=== PATIENT | female | born 1970 | race Caucasian/White ===

== ENCOUNTER 2016-12-30 14:54 | Outpatient (CLI) | payer BC, OTHER ==
[2016-12-30 15:32] LABS: BASOPHILS % (AUTO) 0.5 % (0.0-2.0); EOSINOPHILS # (AUTO) 0.2 K/uL (0.0-0.7); EOSINOPHILS % (AUTO) 1.7 % (0.0-7.0); HEMATOCRIT 39.9 % (37-47); HEMOGLOBIN 13.1 G/DL (12.0-16.0); LYMPHOCYTES # (AUTO) 2.4 K/UL (0.8-4.8); LYMPHOCYTES % (AUTO) 25.3 % (20.5-51.5); MEAN CORPUSCULAR HEMOGLOBIN 31.6 UUG (27.0-31.0); MEAN CORPUSCULAR HGB CONC 33 g/dL (32.0-37.0); MEAN CORPUSCULAR VOLUME 95.9 FL (81.0-99.0); MONOCYTES # (AUTO) 0.5 K/UL (0.1-1.30); MONOCYTES % (AUTO) 5.5 % (0.0-11.0); NEUTROPHILS # (AUTO) 6.5 K/UL (1.8-8.9); PLATELET COUNT (AUTO) 331 K/UL (150-450); RED BLOOD CELL COUNT(AUTO) 4.16 MIL/UL (4.2-5.4); WHITE BLOOD COUNT (AUTO) 9.6 K/UL (4.0-11.2)
[2016-12-31 08:11] LABS: ESTRADIOL 162.2 pg/mL (.); FOLLICLE STIMULATION HORMONE 2.4 mIU/mL (.)
== END 2016-12-30 23:59 | disposition home or self-care (01) ==
LOC: LAB 14:54
PROVIDERS: ATTEND Obstetrics & Gynecology
DX: Z00.01 Encounter for general adult medical examination with abnormal findings (principal)
CPT/HCPCS: 36415; 82670; 83001; 85025

== ENCOUNTER → 2017-11-12 | Outpatient (CLI) | payer BC, OTHER ==
[2017-11-12 11:05] LABS: HEMOGLOBIN 13.3 g/dL (10.9-14.3); WHITE BLOOD COUNT (AUTO) 5.9 K/uL (3.8-11.8)
[2017-11-12 11:10] LABS: BASOPHILS # (AUTO) 0.1 K/uL (0.0-8.0); BASOPHILS % (AUTO) 0.8 % (0.0-2.0); EOSINOPHILS # (AUTO) 0.2 K/uL (0.0-0.7); EOSINOPHILS % (AUTO) 3.6 % (0.0-7.0); HEMATOCRIT 38.7 % (31.2-41.9); LYMPHOCYTES # (AUTO) 2.2 K/uL (20.0-40.0); LYMPHOCYTES % (AUTO) 37.3 % (20.5-51.5); MEAN CORPUSCULAR HEMOGLOBIN 33.7 uug (24.7-32.8); MEAN CORPUSCULAR HGB CONC 34 g/dL (32.3-35.6); MEAN CORPUSCULAR VOLUME 97.9 fL (75.5-95.3); MONOCYTES # (AUTO) 0.4 K/uL (2.0-10.0); MONOCYTES % (AUTO) 6.5 % (0.0-11.0); NEUTROPHILS # (AUTO) 3.1 K/uL (1.8-8.9); NEUTROPHILS % (AUTO) 51.8 % (38.5-71.5); PLATELET COUNT (AUTO) 264 K/uL (179-408); RED BLOOD CELL COUNT(AUTO) 3.95 MIL/uL (3.63-4.92)
[2017-11-12 11:33] LABS: BILIRUBIN,TOTAL 0.4 mg/dL (0.2-1.0); CREATININE 0.9 mg/dL (0.6-1.3); POTASSIUM 4.8 mmol/L (3.5-5.1); TOTAL PROTEIN, SERUM 7.2 g/dL (6.4-8.2)
[2017-11-12 11:40] LABS: THYROID STIMULATING HORMONE 1.977 mIU/mL (0.358-3.740)
[2017-11-13 08:06] LABS: FOLLICLE STIMULATION HORMONE 6.1 mIU/mL (.)
== END | disposition home or self-care (01) ==
LOC: LAB 09:56
DX: Z12.11 Encounter for screening for malignant neoplasm of colon (principal); Z12.12 Encounter for screening for malignant neoplasm of rectum; E78.5 Hyperlipidemia, unspecified; R23.2 Flushing; M25.519 Pain in unspecified shoulder
CPT/HCPCS: 36415; 83001; 83002; 84443; 85025

== ENCOUNTER 2019-02-13 14:48 | Outpatient (CLI) | payer BC, OTHER ==
[2019-02-13 15:23] LABS: BASOPHILS # (AUTO) 0.1 K/uL (0.0-8.0); BASOPHILS % (AUTO) 0.6 % (0.0-2.0); EOSINOPHILS # (AUTO) 0.2 K/uL (0.0-0.7); EOSINOPHILS % (AUTO) 2.1 % (0.0-7.0); HEMATOCRIT 40.5 % (31.2-41.9); HEMOGLOBIN 13.6 g/dL (10.9-14.3); LYMPHOCYTES # (AUTO) 2.6 K/uL (20.0-40.0); LYMPHOCYTES % (AUTO) 26.7 % (20.5-51.5); MEAN CORPUSCULAR HEMOGLOBIN 33.1 uug (24.7-32.8); MEAN CORPUSCULAR HGB CONC 34 g/dL (32.3-35.6); MEAN CORPUSCULAR VOLUME 98.5 fL (75.5-95.3); MONOCYTES # (AUTO) 0.5 K/uL (2.0-10.0); NEUTROPHILS # (AUTO) 6.3 K/uL (1.8-8.9); NEUTROPHILS % (AUTO) 65.6 % (38.5-71.5); PLATELET COUNT (AUTO) 284 K/uL (179-408); RED BLOOD CELL COUNT(AUTO) 4.11 MIL/uL (3.63-4.92); WHITE BLOOD COUNT (AUTO) 9.7 K/uL (3.8-11.8)
[2019-02-13 15:27] LABS: *BILIRUBIN,URIN NEGATIVE (NEGATIVE); *BLOOD, URINE NEGATIVE (NEGATIVE); *CLARITY,URINE CLEAR (CLEAR); *COLOR,URINE YELLOW (YELLOW); *KETONES,URINE TRACE (NEGATIVE); *UROBILINOGEN,URINE 0.2 E.U./dl (NORMAL); LEUKOCYTE ESTERASE ,URINE NEGATIVE (NEGATIVE); NITRITE, URINE NEGATIVE (NEGATIVE); UGLUCOSE NEGATIVE (NEGATIVE)
[2019-02-13 15:47] LABS: THYROID STIMULATING HORMONE 3.013 mIU/mL (0.358-3.740)
[2019-02-13 15:50] LABS: BILIRUBIN,TOTAL 0.4 mg/dL (0.2-1.0); CREATININE 0.9 mg/dL (0.6-1.3); MAGNESIUM 2.1 mg/dL (1.8-2.4); POTASSIUM 4.3 mmol/L (3.5-5.1); TOTAL PROTEIN, SERUM 7.6 g/dL (6.4-8.2)
== END 2019-02-13 23:59 | disposition home or self-care (01) ==
LOC: LAB 14:48
DX: L30.9 Dermatitis, unspecified (principal); E78.5 Hyperlipidemia, unspecified
CPT/HCPCS: 36415; 82306; 83550; 83735; 84443; 85025

== ENCOUNTER 2019-06-28 07:32 | Emergency (ER) | payer BC, OTHER ==
[~2019-06-28] VITALS: Ht 172.7 cm; Wt 86.2 kg
--- NOTE | 2019-06-28 07:48 | NUR ---
Patient discharged to home in stable condition. Written and verbal after care instructions given to patient and spouse. Patient & spouse verbalized understanding & compliance of instructions.
== END 2019-06-28 07:50 | disposition home or self-care (01) ==
LOC: ER 07:32
DX: J10.1 Influenza due to other identified influenza virus with other respiratory manifestations (principal)
CPT/HCPCS: A4663

== ENCOUNTER → 2019-07-16 | Outpatient (CLI) | payer BC, OTHER ==
[2019-07-18 01:06] LABS: CANCER AG, 125 14.6 U/mL (0.0-38.1); FOLLICLE STIMULATION HORMONE 6.1 mIU/mL (.)
== END | disposition home or self-care (01) ==
LOC: LAB 12:46
PROVIDERS: ATTEND Obstetrics & Gynecology
DX: Z80.9 Family history of malignant neoplasm, unspecified (principal)
CPT/HCPCS: 36415; 83001

== ENCOUNTER 2019-08-17 19:58 | Emergency (ER) | payer BC, OTHER ==
[~2019-08-17] VITALS: Ht 167.6 cm; Wt 86.2 kg
[2019-08-17 20:32] LABS: BASOPHILS # (AUTO) 0.1 K/uL (0.0-8.0); BASOPHILS % (AUTO) 0.7 % (0.0-2.0); EOSINOPHILS # (AUTO) 0.2 K/uL (0.0-0.7); HEMATOCRIT 36.1 % (31.2-41.9); HEMOGLOBIN 12.3 g/dL (10.9-14.3); LYMPHOCYTES # (AUTO) 2.8 K/uL (20.0-40.0); LYMPHOCYTES % (AUTO) 38.4 % (20.5-51.5); MEAN CORPUSCULAR HGB CONC 34 g/dL (32.3-35.6); MEAN CORPUSCULAR VOLUME 96.5 fL (75.5-95.3); MONOCYTES # (AUTO) 0.6 K/uL (2.0-10.0); MONOCYTES % (AUTO) 7.7 % (0.0-11.0); NEUTROPHILS # (AUTO) 3.6 K/uL (1.8-8.9); NEUTROPHILS % (AUTO) 50.2 % (38.5-71.5); PLATELET COUNT (AUTO) 266 K/uL (179-408); RED BLOOD CELL COUNT(AUTO) 3.74 MIL/uL (3.63-4.92); WHITE BLOOD COUNT (AUTO) 7.2 K/uL (3.8-11.8)
[2019-08-17 20:43] LABS: CARBON DIOXIDE 28 mmol/L (21-32); CHLORIDE 103 mmol/L (98-107); CREATININE 0.9 mg/dL (0.6-1.3); GLUCOSE 101 mg/dL (74-106); POTASSIUM 4.6 mmol/L (3.5-5.1); UREA NITROGEN, BLOOD 21 mg/dL (7-18)
--- NOTE | 2019-08-17 20:47 | NUR ---
PT IS IN ROOM #5. DR DAN EVALUATED THE PT.
[2019-08-17 20:56] LABS: ALANINE AMINOTRANSFERASE 50 U/L (14-59); ALKALINE PHOSPHATASE 96 U/L (50-136); ASPARTATE AMINOTRANSFERASE 24 U/L (15-37); BILIRUBIN,DIRECT < 0.1 mg/dL (0.0-0.2); BILIRUBIN,TOTAL 0.1 mg/dL (0.2-1.0); TOTAL PROTEIN, SERUM 7.1 g/dL (6.4-8.2)
--- NOTE | 2019-08-17 21:03 | NUR ---
PT WAS D/C'd TO HOME AFTER DR DAN EVALUATION. D/C INSTRUCTIONS GIVEN TO THE PT.
[2019-08-17 21:04] VITALS: BP 142/88
== END 2019-08-17 21:15 | disposition home or self-care (01) ==
LOC: ER 19:58
DX: R07.89 Other chest pain (principal); E78.5 Hyperlipidemia, unspecified
CPT/HCPCS: 36415; 70030-TC; 71045; 85025; 85730; 93005; A4663

== ENCOUNTER → 2019-11-24 | Outpatient (CLI) | payer BC, OTHER ==
[2019-11-24 09:27] LABS: BASOPHILS # (AUTO) 0.1 K/uL (0.0-8.0); BASOPHILS % (AUTO) 1.4 % (0.0-2.0); EOSINOPHILS # (AUTO) 0.2 K/uL (0.0-0.7); EOSINOPHILS % (AUTO) 3.9 % (0.0-7.0); HEMATOCRIT 38.8 % (31.2-41.9); LYMPHOCYTES # (AUTO) 1.9 K/uL (20.0-40.0); MEAN CORPUSCULAR HEMOGLOBIN 32.4 uug (24.7-32.8); MEAN CORPUSCULAR HGB CONC 34 g/dL (32.3-35.6); MEAN CORPUSCULAR VOLUME 96.6 fL (75.5-95.3); MONOCYTES # (AUTO) 0.4 K/uL (2.0-10.0); MONOCYTES % (AUTO) 6.7 % (0.0-11.0); NEUTROPHILS # (AUTO) 2.8 K/uL (1.8-8.9); PLATELET COUNT (AUTO) 345 K/uL (179-408); RED BLOOD CELL COUNT(AUTO) 4.02 MIL/uL (3.63-4.92); WHITE BLOOD COUNT (AUTO) 5.3 K/uL (3.8-11.8)
[2019-11-24 10:10] LABS: *BILIRUBIN,URIN NEGATIVE (NEGATIVE); *BLOOD, URINE 3+ (NEGATIVE); *CLARITY,URINE Other (CLEAR); *COLOR,URINE YELLOW (YELLOW); *KETONES,URINE NEGATIVE (NEGATIVE); *UROBILINOGEN,URINE 0.2 E.U./dl (NORMAL); LEUKOCYTE ESTERASE ,URINE NEGATIVE (NEGATIVE); NITRITE, URINE NEGATIVE (NEGATIVE); UGLUCOSE NEGATIVE (NEGATIVE)
[2019-11-24 10:19] LABS: BILIRUBIN,TOTAL 0.3 mg/dL (0.2-1.0); CREATININE 1.1 mg/dL (0.6-1.3); MAGNESIUM 2.1 mg/dL (1.8-2.4); POTASSIUM 4.5 mmol/L (3.5-5.1); TOTAL PROTEIN, SERUM 7.5 g/dL (6.4-8.2)
[2019-11-24 10:25] LABS: THYROID STIMULATING HORMONE 2.091 mIU/mL (0.358-3.740)
[2019-11-24 12:53] LABS: BACTERIA,URINE FEW /HPF (NONE SEEN); RBC,URINE 50-80 /HPF (0-3); SQUAMOUS EPITHELIAL CELL,UR MODERATE /HPF (NONE SEEN)
[2019-11-26 05:06] LABS: PROGESTERONE 0.3 ng/mL (.)
[2019-11-26 12:08] LABS: INSULIN 19.8 uIU/mL (2.6-24.9)
== END | disposition home or self-care (01) ==
LOC: LAB 08:23
DX: R51 Headache (principal)
CPT/HCPCS: 36415; 82306; 83525; 83735; 84443; 84480; 85025; 85651; 86140; 87086

== ENCOUNTER 2019-12-28 10:40 | Emergency (ER) | payer BC, OTHER ==
[~2019-12-28] VITALS: Ht 167.6 cm; Wt 87.1 kg
[2019-12-28] MEDS ORDERED: CEFTRIAXONE /D5W 50ML IVPB **ER PYXIS IV ONE (10:50)
[2019-12-28] MEDS ORDERED: VANCOMYCIN IV 200 ML ONE (10:50)
[2019-12-28] MEDS ORDERED: VANCOMYCIN IV 1,000 MG in IV DEXTROSE 5% 250 ML IV ONE (11:00)
[2019-12-28] MEDS ORDERED: CEFTRIAXONE 1 G in IV DEXTROSE 5% 50 ML IV ONE (11:00)
--- NOTE | 2019-12-28 11:12 | NUR ---
PT IS IN ROOM #5. DR LOCKHART EVALUATED THE PT.
[2019-12-28 12:50] VITALS: BP 136/72
--- NOTE | 2019-12-28 12:50 | NUR ---
PT WAS D/C'd TO HOME. D/C INSTRUCTIONS GIVEN TO THE PT.
== END 2019-12-28 12:51 | disposition home or self-care (01) ==
LOC: ER 10:40
DX: N61.0 Mastitis without abscess (principal); E78.5 Hyperlipidemia, unspecified
CPT/HCPCS: 96365 ×2; 99284; J0696; J3370; A4663

== ENCOUNTER 2020-01-10 10:46 | Emergency (ER) | payer BC, OTHER ==
[~2020-01-10] VITALS: Ht 170.2 cm; Wt 88.5 kg
--- NOTE | 2020-01-10 11:01 | NUR ---
PT IS IN ROOM #5A. DR DAN EVALUATED THE PT.
--- NOTE | 2020-01-10 11:01 | NUR ---
Female machine loader accompanied female patient for (DR Hagan).
[2020-01-10 11:30] LABS: BASOPHILS % (AUTO) 0.9 % (0.0-2.0); EOSINOPHILS # (AUTO) 0.2 K/uL (0.0-0.7); EOSINOPHILS % (AUTO) 3.2 % (0.0-7.0); HEMATOCRIT 36.8 % (31.2-41.9); HEMOGLOBIN 12.3 g/dL (10.9-14.3); LYMPHOCYTES # (AUTO) 1.5 K/uL (20.0-40.0); LYMPHOCYTES % (AUTO) 31.8 % (20.5-51.5); MEAN CORPUSCULAR HEMOGLOBIN 32.3 uug (24.7-32.8); MEAN CORPUSCULAR HGB CONC 34 g/dL (32.3-35.6); MEAN CORPUSCULAR VOLUME 96.4 fL (75.5-95.3); MONOCYTES # (AUTO) 0.3 K/uL (2.0-10.0); MONOCYTES % (AUTO) 5.9 % (0.0-11.0); NEUTROPHILS # (AUTO) 2.8 K/uL (1.8-8.9); NEUTROPHILS % (AUTO) 58.2 % (38.5-71.5); PLATELET COUNT (AUTO) 302 K/uL (179-408); RED BLOOD CELL COUNT(AUTO) 3.82 MIL/uL (3.63-4.92); WHITE BLOOD COUNT (AUTO) 4.8 K/uL (3.8-11.8)
[2020-01-10 11:34] LABS: POTASSIUM 4.3 mmol/L (3.5-5.1)
--- NOTE | 2020-01-10 11:52 | NUR ---
Radialogist from [facility] spoke to DR Hagan, stating unable to perform MRI of chest.
--- NOTE | 2020-01-10 12:18 | NUR ---
PT WAS D/C'd TO HOME. D/C INSTRUCTIONS GIVEN TO THE PT.
[2020-01-10 12:19] VITALS: BP 139/71
== END 2020-01-10 12:20 | disposition home or self-care (01) ==
LOC: ER 10:46
DX: N61.0 Mastitis without abscess (principal); E78.5 Hyperlipidemia, unspecified
CPT/HCPCS: 36415; 76642; 82378; 85025; A4663

== ENCOUNTER 2020-01-19 09:15 | Inpatient (IN) | payer BC, OTHER ==
[~2020-01-19] VITALS: Ht 170.2 cm; Wt 89.4 kg
[2020-01-19] MEDS ORDERED: CLIN300C11 PO (09:29)
[2020-01-19] MEDS ORDERED: AMOX-430 PO (09:29)
[2020-01-19] MEDS ORDERED: METR500T PO (09:29)
[2020-01-19] MEDS ORDERED: VANCOMYCIN IV 1,000 MG in IV DEXTROSE 5% 250 ML IV ONE (09:45)
[2020-01-19 10:07] LABS: BASOPHILS # (AUTO) 0.1 K/uL (0.0-8.0); EOSINOPHILS # (AUTO) 0.1 K/uL (0.0-0.7); EOSINOPHILS % (AUTO) 2.6 % (0.0-7.0); HEMATOCRIT 37.7 % (31.2-41.9); HEMOGLOBIN 12.8 g/dL (10.9-14.3); LYMPHOCYTES # (AUTO) 1.3 K/uL (20.0-40.0); LYMPHOCYTES % (AUTO) 23.8 % (20.5-51.5); MEAN CORPUSCULAR HEMOGLOBIN 32.5 uug (24.7-32.8); MEAN CORPUSCULAR HGB CONC 34 g/dL (32.3-35.6); MEAN CORPUSCULAR VOLUME 95.7 fL (75.5-95.3); MONOCYTES # (AUTO) 0.4 K/uL (2.0-10.0); MONOCYTES % (AUTO) 8.2 % (0.0-11.0); NEUTROPHILS # (AUTO) 3.5 K/uL (1.8-8.9); NEUTROPHILS % (AUTO) 64.4 % (38.5-71.5); PLATELET COUNT (AUTO) 288 K/uL (179-408); RED BLOOD CELL COUNT(AUTO) 3.94 MIL/uL (3.63-4.92); WHITE BLOOD COUNT (AUTO) 5.4 K/uL (3.8-11.8)
[2020-01-19] MEDS ORDERED: VANCOMYCIN IV 200 ML ONE (10:14)
[2020-01-19 10:24] LABS: BILIRUBIN,DIRECT 0.1 mg/dL (0.0-0.2); BILIRUBIN,TOTAL 0.4 mg/dL (0.2-1.0); POTASSIUM 4.7 mmol/L (3.5-5.1); TOTAL PROTEIN, SERUM 6.9 g/dL (6.4-8.2)
[2020-01-19 12:59] VITALS: BP 141/76
[2020-01-19] MEDS ORDERED: MORPHINE SULFATE 2 MG/1 ML DISP.SYRIN IV PRN (13:30)
[2020-01-19] MEDS ORDERED: HYDROCODONE/APAP 5-325MG TABLET PO PRN (13:30)
[2020-01-19] MEDS ORDERED: MAGNESIUM HYDROXIDE 30 ML LIQUID UDC PO PRN (13:30)
[2020-01-19] MEDS ORDERED: ONDANSETRON 4 MG/2 ML VIAL IV PRN (13:30)
[2020-01-19] MEDS ORDERED: Z GUARD REMEDY PASTE 57 GM TUBE TOP PRN (13:30)
[2020-01-19] MEDS: IV NS 1000 ML 1,000 ML IV PRN (14:04)
[2020-01-19 15:54] VITALS: BP 134/84
[2020-01-19 20:36] VITALS: BP 113/57
[2020-01-19] MEDS: DOCUSATE SODIUM 100 MG CAPSULE PO SCH (20:42)
[2020-01-19] MEDS: CEFEPIME HCL 1 G in IV DEXTROSE 5% 50 ML IV SCH (21:02)
[2020-01-19] MEDS: ACETAMINOPHEN 325 MG TABLET PO PRN (21:10)
[2020-01-19] MEDS: VANCOMYCIN IV 1,000 MG in IV DEXTROSE 5% 250 ML IV SCH (21:38)
[2020-01-20] MEDS: IV NS 1000 ML 1,000 ML IV PRN (02:52)
[2020-01-20] MEDS: CEFEPIME HCL 1 G in IV DEXTROSE 5% 50 ML IV SCH ×3 (05:03→22:00)
[2020-01-20] MEDS: ACETAMINOPHEN 325 MG TABLET PO PRN (05:13)
[2020-01-20 05:36] VITALS: BP 119/75
[2020-01-20 07:42] LABS: BASOPHILS # (AUTO) 0.1 K/uL (0.0-8.0); EOSINOPHILS # (AUTO) 0.2 K/uL (0.0-0.7); EOSINOPHILS % (AUTO) 3.3 % (0.0-7.0); HEMATOCRIT 38.2 % (31.2-41.9); HEMOGLOBIN 13.2 g/dL (10.9-14.3); LYMPHOCYTES # (AUTO) 1.5 K/uL (20.0-40.0); LYMPHOCYTES % (AUTO) 24.9 % (20.5-51.5); MEAN CORPUSCULAR HEMOGLOBIN 33.1 uug (24.7-32.8); MEAN CORPUSCULAR HGB CONC 35 g/dL (32.3-35.6); MEAN CORPUSCULAR VOLUME 95.9 fL (75.5-95.3); MONOCYTES # (AUTO) 0.4 K/uL (2.0-10.0); NEUTROPHILS # (AUTO) 3.9 K/uL (1.8-8.9); NEUTROPHILS % (AUTO) 63.8 % (38.5-71.5); PLATELET COUNT (AUTO) 300 K/uL (179-408); RED BLOOD CELL COUNT(AUTO) 3.98 MIL/uL (3.63-4.92); WHITE BLOOD COUNT (AUTO) 6.1 K/uL (3.8-11.8)
[2020-01-20 07:53] LABS: BILIRUBIN,TOTAL 0.4 mg/dL (0.2-1.0); MAGNESIUM 2.1 mg/dL (1.8-2.4); POTASSIUM 4.3 mmol/L (3.5-5.1); TOTAL PROTEIN, SERUM 6.9 g/dL (6.4-8.2)
[2020-01-20] MEDS: NICOTINE 7 MG/24HR PATCH TD SCH (08:00)
[2020-01-20 08:48] LABS: THYROID STIMULATING HORMONE 2.338 mIU/mL (0.358-3.740)
[2020-01-20] MEDS: VANCOMYCIN IV 1,000 MG in IV DEXTROSE 5% 250 ML IV SCH ×2 (09:30→22:36)
[2020-01-20 12:00] VITALS: BP 140/74
[2020-01-20 15:55] VITALS: BP 134/64
[2020-01-20 20:30] VITALS: BP 122/71
[2020-01-20] MEDS: DOCUSATE SODIUM 100 MG CAPSULE PO SCH (20:56)
[2020-01-20] MEDS: ATORVASTATIN 10 MG TABLET PO SCH (20:56)
[2020-01-21] MEDS: CEFEPIME HCL 1 G in IV DEXTROSE 5% 50 ML IV SCH ×3 (05:41→21:01)
[2020-01-21 06:31] VITALS: BP 121/72
[2020-01-21] MEDS: NICOTINE 7 MG/24HR PATCH TD SCH (08:58)
[2020-01-21 09:46] LABS: BASOPHILS # (AUTO) 0.1 K/uL (0.0-8.0); BASOPHILS % (AUTO) 0.9 % (0.0-2.0); EOSINOPHILS # (AUTO) 0.2 K/uL (0.0-0.7); EOSINOPHILS % (AUTO) 3.3 % (0.0-7.0); HEMATOCRIT 43.4 % (31.2-41.9); HEMOGLOBIN 14.6 g/dL (10.9-14.3); LYMPHOCYTES # (AUTO) 1.7 K/uL (20.0-40.0); LYMPHOCYTES % (AUTO) 24.6 % (20.5-51.5); MEAN CORPUSCULAR HEMOGLOBIN 32.6 uug (24.7-32.8); MEAN CORPUSCULAR HGB CONC 34 g/dL (32.3-35.6); MEAN CORPUSCULAR VOLUME 96.9 fL (75.5-95.3); MONOCYTES # (AUTO) 0.4 K/uL (2.0-10.0); MONOCYTES % (AUTO) 5.3 % (0.0-11.0); NEUTROPHILS # (AUTO) 4.4 K/uL (1.8-8.9); NEUTROPHILS % (AUTO) 65.9 % (38.5-71.5); PLATELET COUNT (AUTO) 320 K/uL (179-408); RED BLOOD CELL COUNT(AUTO) 4.48 MIL/uL (3.63-4.92); WHITE BLOOD COUNT (AUTO) 6.7 K/uL (3.8-11.8)
[2020-01-21 09:58] LABS: CREATININE 1.1 mg/dL (0.6-1.3); MAGNESIUM 2.2 mg/dL (1.8-2.4); PHOSPHOROUS 2.5 mg/dL (2.5-4.9)
[2020-01-21 11:00] VITALS: BP 117/68
[2020-01-21] MEDS: VANCOMYCIN IV 1,250 MG in IV DEXTROSE 5% 250 ML IV SCH ×2 (11:24→22:32)
[2020-01-21 15:36] VITALS: BP 145/76
[2020-01-21 20:06] VITALS: BP 140/74
[2020-01-21] MEDS: DOCUSATE SODIUM 100 MG CAPSULE PO SCH ×2 (21:00→21:01)
[2020-01-21] MEDS: ATORVASTATIN 10 MG TABLET PO SCH ×2 (21:00→21:01)
[2020-01-22] MEDS: CEFEPIME HCL 1 G in IV DEXTROSE 5% 50 ML IV SCH ×3 (05:28→21:17)
[2020-01-22 05:49] VITALS: BP 114/65
[2020-01-22 06:22] LABS: BASOPHILS # (AUTO) 0.1 K/uL (0.0-8.0); BASOPHILS % (AUTO) 1.2 % (0.0-2.0); EOSINOPHILS # (AUTO) 0.3 K/uL (0.0-0.7); EOSINOPHILS % (AUTO) 4.4 % (0.0-7.0); HEMATOCRIT 37.4 % (31.2-41.9); HEMOGLOBIN 12.7 g/dL (10.9-14.3); LYMPHOCYTES # (AUTO) 2.2 K/uL (20.0-40.0); LYMPHOCYTES % (AUTO) 28.9 % (20.5-51.5); MEAN CORPUSCULAR HEMOGLOBIN 32.7 uug (24.7-32.8); MEAN CORPUSCULAR HGB CONC 34 g/dL (32.3-35.6); MEAN CORPUSCULAR VOLUME 96.2 fL (75.5-95.3); MONOCYTES # (AUTO) 0.5 K/uL (2.0-10.0); MONOCYTES % (AUTO) 7.1 % (0.0-11.0); NEUTROPHILS # (AUTO) 4.4 K/uL (1.8-8.9); NEUTROPHILS % (AUTO) 58.4 % (38.5-71.5); PLATELET COUNT (AUTO) 306 K/uL (179-408); RED BLOOD CELL COUNT(AUTO) 3.89 MIL/uL (3.63-4.92); WHITE BLOOD COUNT (AUTO) 7.5 K/uL (3.8-11.8)
[2020-01-22 06:40] LABS: POTASSIUM 3.7 mmol/L (3.5-5.1)
[2020-01-22] MEDS: NICOTINE 7 MG/24HR PATCH TD SCH (08:54)
[2020-01-22 12:00] VITALS: BP 138/77
[2020-01-22] MEDS: VANCOMYCIN IV 1,250 MG in IV DEXTROSE 5% 250 ML IV SCH (15:00)
[2020-01-22 16:00] VITALS: BP 118/62
[2020-01-22 20:00] VITALS: BP 136/83
[2020-01-22] MEDS: ATORVASTATIN 10 MG TABLET PO SCH (21:00)
[2020-01-22] MEDS: DOCUSATE SODIUM 100 MG CAPSULE PO SCH (21:00)
[2020-01-23] MEDS: ZOLPIDEM 5 MG TABLET PO PRN ×2 (00:41→22:20)
[2020-01-23] MEDS: VANCOMYCIN IV 1,250 MG in IV DEXTROSE 5% 250 ML IV SCH ×2 (01:20→14:33)
[2020-01-23] MEDS: CEFEPIME HCL 1 G in IV DEXTROSE 5% 50 ML IV SCH ×3 (05:10→21:32)
[2020-01-23] MEDS: NICOTINE 7 MG/24HR PATCH TD SCH (08:34)
[2020-01-23 12:00] VITALS: BP 116/71
[2020-01-23 13:21] LABS: BASOPHILS % (AUTO) 0.7 % (0.0-2.0); EOSINOPHILS # (AUTO) 0.2 K/uL (0.0-0.7); EOSINOPHILS % (AUTO) 2.8 % (0.0-7.0); HEMATOCRIT 38.4 % (31.2-41.9); HEMOGLOBIN 13.3 g/dL (10.9-14.3); LYMPHOCYTES # (AUTO) 1.7 K/uL (20.0-40.0); LYMPHOCYTES % (AUTO) 25.1 % (20.5-51.5); MEAN CORPUSCULAR HEMOGLOBIN 33.1 uug (24.7-32.8); MEAN CORPUSCULAR HGB CONC 35 g/dL (32.3-35.6); MONOCYTES # (AUTO) 0.3 K/uL (2.0-10.0); MONOCYTES % (AUTO) 4.5 % (0.0-11.0); NEUTROPHILS # (AUTO) 4.5 K/uL (1.8-8.9); NEUTROPHILS % (AUTO) 66.9 % (38.5-71.5); PLATELET COUNT (AUTO) 299 K/uL (179-408); WHITE BLOOD COUNT (AUTO) 6.7 K/uL (3.8-11.8)
[2020-01-23 13:28] LABS: CREATININE 0.9 mg/dL (0.6-1.3); PHOSPHOROUS 3.1 mg/dL (2.5-4.9); POTASSIUM 3.9 mmol/L (3.5-5.1)
[2020-01-23 16:08] VITALS: BP 118/73
[2020-01-23] MEDS ORDERED: ATOR10TA PO (17:10)
[2020-01-23] MEDS ORDERED: DOXY100T2 PO (17:10)
[2020-01-23] MEDS ORDERED: DOCU100C36 PO (17:10)
[2020-01-23] MEDS ORDERED: LEVO750T21 PO (17:10)
[2020-01-23] MEDS: ATORVASTATIN 10 MG TABLET PO SCH (21:00)
[2020-01-23] MEDS: DOCUSATE SODIUM 100 MG CAPSULE PO SCH (21:00)
[2020-01-24] MEDS: VANCOMYCIN IV 1,250 MG in IV DEXTROSE 5% 250 ML IV SCH ×2 (01:13→14:47)
[2020-01-24] MEDS: CEFEPIME HCL 1 G in IV DEXTROSE 5% 50 ML IV SCH ×2 (05:22→14:26)
[2020-01-24 06:46] LABS: BASOPHILS # (AUTO) 0.1 K/uL (0.0-8.0); BASOPHILS % (AUTO) 1.2 % (0.0-2.0); EOSINOPHILS # (AUTO) 0.3 K/uL (0.0-0.7); EOSINOPHILS % (AUTO) 4.7 % (0.0-7.0); HEMATOCRIT 36.9 % (31.2-41.9); HEMOGLOBIN 12.6 g/dL (10.9-14.3); LYMPHOCYTES % (AUTO) 32.4 % (20.5-51.5); MEAN CORPUSCULAR HEMOGLOBIN 33.2 uug (24.7-32.8); MEAN CORPUSCULAR HGB CONC 34 g/dL (32.3-35.6); MEAN CORPUSCULAR VOLUME 96.8 fL (75.5-95.3); MONOCYTES # (AUTO) 0.4 K/uL (2.0-10.0); MONOCYTES % (AUTO) 7.2 % (0.0-11.0); NEUTROPHILS # (AUTO) 3.3 K/uL (1.8-8.9); NEUTROPHILS % (AUTO) 54.5 % (38.5-71.5); PLATELET COUNT (AUTO) 300 K/uL (179-408); RED BLOOD CELL COUNT(AUTO) 3.81 MIL/uL (3.63-4.92); WHITE BLOOD COUNT (AUTO) 6.1 K/uL (3.8-11.8)
[2020-01-24 07:06] LABS: AFP, TUMOR MARKER 2.4 ng/mL (0.0-8.3); CANCER AG, 125 23.5 U/mL (0.0-38.1); CANCER ANTIGEN 15-3 20.4 U/mL (0.0-25.0)
[2020-01-24 07:24] LABS: CREATININE 0.9 mg/dL (0.6-1.3); MAGNESIUM 2.4 mg/dL (1.8-2.4); PHOSPHOROUS 3.7 mg/dL (2.5-4.9); POTASSIUM 4.1 mmol/L (3.5-5.1)
[2020-01-24] MEDS: NICOTINE 7 MG/24HR PATCH TD SCH (09:00)
[2020-01-24 11:21] VITALS: BP 125/81
[2020-01-24 16:18] VITALS: BP 123/54
== END 2020-01-24 19:02 | disposition home or self-care (01) | DRG 601 ==
LOC: ER 09:15 → MEDSURG3 12:14
PROVIDERS: ADMIT Hospitalist; ATTEND Registered Nurse
PROC: 0HBT3ZX Excision of Right Breast, Percutaneous Approach, Diagnostic (ICD-10-PCS; principal; 2020-01-22)
PROC: 05H533Z Insertion of Infusion Device into Right Subclavian Vein, Percutaneous Approach (ICD-10-PCS; principal; 2020-01-22)
PROC: B546ZZA Ultrasonography of Right Subclavian Vein, Guidance (ICD-10-PCS; principal; 2020-01-22)
DX: N60.11 Diffuse cystic mastopathy of right breast (principal); N61.0 Mastitis without abscess; E66.9 Obesity, unspecified; Z68.30 Body mass index [BMI] 30.0-30.9, adult; E78.5 Hyperlipidemia, unspecified; K42.9 Umbilical hernia without obstruction or gangrene; N63.11 Unspecified lump in the right breast, upper outer quadrant; F17.210 Nicotine dependence, cigarettes, uncomplicated; N61.1 Abscess of the breast and nipple
CPT/HCPCS: 36415; 70030-TC; 71045; 76642; 76942; 82105; 83735; 84100; 84443; 85025; 85730; 86300; 86803; 87040; 87070; 87806; 88333-TC; 93005; A4663; A9150; G0378; J0692; J3370; J7030; J7060

== ENCOUNTER 2020-02-07 09:34 | Outpatient (CLI) | payer BC, OTHER ==
[~2020-02-07 09:34] MED LIST: ATOR10TA PO; DOCU100C36 PO; DOXY100T2 PO; LEVO750T21 PO
[2020-02-07 09:52] LABS: *BILIRUBIN,URIN NEGATIVE (NEGATIVE); *BLOOD, URINE NEGATIVE (NEGATIVE); *CLARITY,URINE CLEAR (CLEAR); *COLOR,URINE YELLOW (YELLOW); *KETONES,URINE NEGATIVE (NEGATIVE); *UROBILINOGEN,URINE 0.2 E.U./dl (NORMAL); LEUKOCYTE ESTERASE ,URINE TRACE (NEGATIVE); NITRITE, URINE NEGATIVE (NEGATIVE); UGLUCOSE NEGATIVE (NEGATIVE)
[2020-02-07 10:31] LABS: BASOPHILS # (AUTO) 0.1 K/uL (0.0-8.0); EOSINOPHILS # (AUTO) 0.2 K/uL (0.0-0.7); EOSINOPHILS % (AUTO) 2.7 % (0.0-7.0); HEMATOCRIT 38.8 % (31.2-41.9); HEMOGLOBIN 13.2 g/dL (10.9-14.3); LYMPHOCYTES # (AUTO) 1.7 K/uL (20.0-40.0); MEAN CORPUSCULAR HEMOGLOBIN 32.8 uug (24.7-32.8); MEAN CORPUSCULAR HGB CONC 34 g/dL (32.3-35.6); MEAN CORPUSCULAR VOLUME 96.5 fL (75.5-95.3); MONOCYTES # (AUTO) 0.4 K/uL (2.0-10.0); MONOCYTES % (AUTO) 6.6 % (0.0-11.0); NEUTROPHILS # (AUTO) 3.8 K/uL (1.8-8.9); NEUTROPHILS % (AUTO) 61.7 % (38.5-71.5); PLATELET COUNT (AUTO) 292 K/uL (179-408); RED BLOOD CELL COUNT(AUTO) 4.03 MIL/uL (3.63-4.92); WHITE BLOOD COUNT (AUTO) 6.1 K/uL (3.8-11.8)
[2020-02-07 10:53] LABS: BILIRUBIN,DIRECT 0.1 mg/dL (0.0-0.2); BILIRUBIN,TOTAL 0.3 mg/dL (0.2-1.0); CREATININE 0.9 mg/dL (0.6-1.3); POTASSIUM 4.6 mmol/L (3.5-5.1); TOTAL PROTEIN, SERUM 7.4 g/dL (6.4-8.2)
[2020-02-07 13:07] LABS: BACTERIA,URINE NONE SEEN /HPF (NONE SEEN); RBC,URINE 0-3 /HPF (0-3); SQUAMOUS EPITHELIAL CELL,UR FEW /HPF (NONE SEEN); WBC,URINE 0-3 /HPF (0-3)
== END 2020-02-07 23:59 | disposition home or self-care (01) ==
LOC: LAB 09:34
DX: N61.0 Mastitis without abscess (principal)
CPT/HCPCS: 36415; 85025

== ENCOUNTER 2020-02-22 11:28 | Outpatient (CLI) | payer BC, OTHER ==
[2020-02-22 11:55] LABS: BASOPHILS # (AUTO) 0.1 K/uL (0.0-8.0); BASOPHILS % (AUTO) 1.2 % (0.0-2.0); EOSINOPHILS # (AUTO) 0.1 K/uL (0.0-0.7); EOSINOPHILS % (AUTO) 3.1 % (0.0-7.0); HEMATOCRIT 38.9 % (31.2-41.9); HEMOGLOBIN 13.3 g/dL (10.9-14.3); LYMPHOCYTES # (AUTO) 1.7 K/uL (20.0-40.0); LYMPHOCYTES % (AUTO) 36.3 % (20.5-51.5); MEAN CORPUSCULAR HEMOGLOBIN 32.8 uug (24.7-32.8); MEAN CORPUSCULAR HGB CONC 34 g/dL (32.3-35.6); MEAN CORPUSCULAR VOLUME 95.5 fL (75.5-95.3); MONOCYTES # (AUTO) 0.3 K/uL (2.0-10.0); MONOCYTES % (AUTO) 6.5 % (0.0-11.0); NEUTROPHILS # (AUTO) 2.5 K/uL (1.8-8.9); NEUTROPHILS % (AUTO) 52.9 % (38.5-71.5); PLATELET COUNT (AUTO) 307 K/uL (179-408); RED BLOOD CELL COUNT(AUTO) 4.07 MIL/uL (3.63-4.92); WHITE BLOOD COUNT (AUTO) 4.6 K/uL (3.8-11.8)
[2020-02-22 12:06] LABS: BILIRUBIN,TOTAL 0.5 mg/dL (0.2-1.0); CREATININE 0.9 mg/dL (0.6-1.3); MAGNESIUM 2.2 mg/dL (1.8-2.4); POTASSIUM 4.3 mmol/L (3.5-5.1); TOTAL PROTEIN, SERUM 7.7 g/dL (6.4-8.2)
== END 2020-02-22 23:59 | disposition home or self-care (01) ==
LOC: LAB 11:28
DX: C50.919 Malignant neoplasm of unspecified site of unspecified female breast (principal)
CPT/HCPCS: 36415; 83735; 85025; 85610; 85730; 86300

== ENCOUNTER 2020-03-12 12:36 | Outpatient (CLI) | payer BC, OTHER ==
[2020-03-12 13:11] LABS: BASOPHILS % (AUTO) 1.5 % (0.0-2.0); EOSINOPHILS # (AUTO) 0.1 K/uL (0.0-0.7); EOSINOPHILS % (AUTO) 2.7 % (0.0-7.0); HEMATOCRIT 36.6 % (31.2-41.9); HEMOGLOBIN 12.2 g/dL (10.9-14.3); LYMPHOCYTES # (AUTO) 1.2 K/uL (20.0-40.0); LYMPHOCYTES % (AUTO) 63.1 % (20.5-51.5); MEAN CORPUSCULAR HGB CONC 33 g/dL (32.3-35.6); MEAN CORPUSCULAR VOLUME 95.8 fL (75.5-95.3); MONOCYTES # (AUTO) 0.1 K/uL (2.0-10.0); MONOCYTES % (AUTO) 6.7 % (0.0-11.0); NEUTROPHILS # (AUTO) 0.5 K/uL (1.8-8.9); PLATELET COUNT (AUTO) 169 K/uL (179-408); RED BLOOD CELL COUNT(AUTO) 3.82 MIL/uL (3.63-4.92)
[2020-03-12 13:23] LABS: BILIRUBIN,TOTAL 0.3 mg/dL (0.2-1.0); CREATININE 0.9 mg/dL (0.6-1.3); MAGNESIUM 2.2 mg/dL (1.8-2.4); POTASSIUM 4.3 mmol/L (3.5-5.1); TOTAL PROTEIN, SERUM 7.4 g/dL (6.4-8.2)
[2020-03-12 19:15] LABS: EOSINOPHILS % (MANUAL) 2 % (0-8); LYMPHOCYTES % (MANUAL) 57 % (20-40); MONOCYTES % (MANUAL) 7 % (2-10); NEUTROPHILS % (MANUAL) 28 % (42-75); REACTIVE LYMPHOCYTES 6 % (0-0)
[2020-03-13 10:20] LABS: CANCER ANTIGEN 15-3 38.6 U/mL (0.0-25.0)
== END 2020-03-12 23:59 | disposition home or self-care (01) ==
LOC: LAB 12:36
DX: C50.919 Malignant neoplasm of unspecified site of unspecified female breast (principal)
CPT/HCPCS: 36415; 70030-TC; 83735; 85025; 86300

== ENCOUNTER 2020-03-18 11:09 | Outpatient (CLI) | payer BC, OTHER ==
[2020-03-18 11:33] LABS: BASOPHILS # (AUTO) 0.2 K/uL (0.0-8.0); BASOPHILS % (AUTO) 0.5 % (0.0-2.0); EOSINOPHILS # (AUTO) 0.1 K/uL (0.0-0.7); EOSINOPHILS % (AUTO) 0.2 % (0.0-7.0); HEMATOCRIT 35.3 % (31.2-41.9); HEMOGLOBIN 11.7 g/dL (10.9-14.3); LYMPHOCYTES # (AUTO) 3.5 K/uL (20.0-40.0); MEAN CORPUSCULAR HGB CONC 33 g/dL (32.3-35.6); MEAN CORPUSCULAR VOLUME 96.3 fL (75.5-95.3); MONOCYTES # (AUTO) 1.3 K/uL (2.0-10.0); MONOCYTES % (AUTO) 2.7 % (0.0-11.0); NEUTROPHILS # (AUTO) 44.3 K/uL (1.8-8.9); NEUTROPHILS % (AUTO) 89.6 % (38.5-71.5); PLATELET COUNT (AUTO) 295 K/uL (179-408); RED BLOOD CELL COUNT(AUTO) 3.67 MIL/uL (3.63-4.92)
[2020-03-18 11:40] LABS: BILIRUBIN,TOTAL 0.1 mg/dL (0.2-1.0); CREATININE 1.1 mg/dL (0.6-1.3); POTASSIUM 4.1 mmol/L (3.5-5.1); TOTAL PROTEIN, SERUM 7.1 g/dL (6.4-8.2)
[2020-03-18 11:51] LABS: WHITE BLOOD COUNT (AUTO) 49.5 K/uL (3.8-11.8)
[2020-03-18 17:18] LABS: BAND % (MANUAL) 7 % (0-10); LYMPHOCYTES % (MANUAL) 15 % (20-40); MONOCYTES % (MANUAL) 6 % (2-10); NEUTROPHILS % (MANUAL) 72 % (42-75)
[2020-03-19 08:06] LABS: CANCER ANTIGEN 15-3 54.3 U/mL (0.0-25.0)
== END 2020-03-18 23:59 | disposition home or self-care (01) ==
LOC: LAB 11:09
DX: C50.919 Malignant neoplasm of unspecified site of unspecified female breast (principal)
CPT/HCPCS: 36415; 70030-TC; 83735; 85025; 86300

== ENCOUNTER 2020-03-31 12:11 | Outpatient (CLI) | payer BC, OTHER ==
[2020-03-31 12:34] LABS: BASOPHILS # (AUTO) 0.1 K/uL (0.0-8.0); BASOPHILS % (AUTO) 4.2 % (0.0-2.0); EOSINOPHILS % (AUTO) 0.8 % (0.0-7.0); MONOCYTES # (AUTO) 0.1 K/uL (2.0-10.0); NEUTROPHILS # (AUTO) 0.1 K/uL (1.8-8.9)
[2020-03-31 12:36] LABS: HEMATOCRIT 30.4 % (31.2-41.9); HEMOGLOBIN 10.5 g/dL (10.9-14.3); LYMPHOCYTES % (AUTO) 78.8 % (20.5-51.5); MEAN CORPUSCULAR HEMOGLOBIN 32.8 uug (24.7-32.8); MEAN CORPUSCULAR HGB CONC 34 g/dL (32.3-35.6); MEAN CORPUSCULAR VOLUME 95.4 fL (75.5-95.3); MONOCYTES % (AUTO) 5.9 % (0.0-11.0); NEUTROPHILS % (AUTO) 10.3 % (38.5-71.5); PLATELET COUNT (AUTO) 150 K/uL (179-408); RED BLOOD CELL COUNT(AUTO) 3.19 MIL/uL (3.63-4.92)
[2020-03-31 12:38] LABS: WHITE BLOOD COUNT (AUTO) 1.2 K/uL (3.8-11.8)
[2020-03-31 12:47] LABS: BILIRUBIN,TOTAL 0.2 mg/dL (0.2-1.0); CREATININE 0.9 mg/dL (0.6-1.3); MAGNESIUM 2.1 mg/dL (1.8-2.4); POTASSIUM 4.3 mmol/L (3.5-5.1)
[2020-03-31 18:43] LABS: EOSINOPHILS % (MANUAL) 3 % (0-8); LYMPHOCYTES % (MANUAL) 57 % (20-40); MONOCYTES % (MANUAL) 11 % (2-10); NEUTROPHILS % (MANUAL) 29 % (42-75)
[2020-04-01 08:06] LABS: CANCER ANTIGEN 15-3 36.1 U/mL (0.0-25.0)
== END 2020-03-31 23:59 | disposition home or self-care (01) ==
LOC: LAB 12:11
DX: C50.919 Malignant neoplasm of unspecified site of unspecified female breast (principal)
CPT/HCPCS: 36415; 70030-TC; 83735; 85025; 86300

== ENCOUNTER 2020-04-08 10:06 | Outpatient (CLI) | payer BC, OTHER ==
[2020-04-08 11:05] LABS: BASOPHILS # (AUTO) 0.3 K/uL (0.0-8.0); BASOPHILS % (AUTO) 0.6 % (0.0-2.0); EOSINOPHILS % (AUTO) 0.1 % (0.0-7.0); HEMATOCRIT 30.2 % (31.2-41.9); HEMOGLOBIN 10.1 g/dL (10.9-14.3); LYMPHOCYTES # (AUTO) 2.8 K/uL (20.0-40.0); LYMPHOCYTES % (AUTO) 5.5 % (20.5-51.5); MEAN CORPUSCULAR HGB CONC 33 g/dL (32.3-35.6); MEAN CORPUSCULAR VOLUME 95.7 fL (75.5-95.3); NEUTROPHILS # (AUTO) 46.8 K/uL (1.8-8.9); NEUTROPHILS % (AUTO) 91.8 % (38.5-71.5); PLATELET COUNT (AUTO) 347 K/uL (179-408); RED BLOOD CELL COUNT(AUTO) 3.15 MIL/uL (3.63-4.92)
[2020-04-08 11:14] LABS: WHITE BLOOD COUNT (AUTO) 50.9 K/uL (3.8-11.8)
[2020-04-08 11:30] LABS: BILIRUBIN,TOTAL 0.2 mg/dL (0.2-1.0); CREATININE 0.9 mg/dL (0.6-1.3); MAGNESIUM 2.1 mg/dL (1.8-2.4); TOTAL PROTEIN, SERUM 7.4 g/dL (6.4-8.2)
[2020-04-08 19:16] LABS: BAND % (MANUAL) 20 % (0-10); LYMPHOCYTES % (MANUAL) 11 % (20-40); METAMYELOCYTES % 2 % (0-1); MONOCYTES % (MANUAL) 3 % (2-10); MYELOCYTES % 1 % (0-0); NEUTROPHILS % (MANUAL) 63 % (42-75)
== END 2020-04-08 23:59 | disposition home or self-care (01) ==
LOC: LAB 10:06
PROVIDERS: ATTEND Internal Medicine Pulmonary Disease
DX: C50.919 Malignant neoplasm of unspecified site of unspecified female breast (principal)
CPT/HCPCS: 36415; 70030-TC; 83735; 85025; 86300

== ENCOUNTER 2020-04-29 11:36 | Outpatient (CLI) | payer BC, OTHER ==
[2020-04-29 12:00] LABS: BASOPHILS # (AUTO) 0.1 K/uL (0.0-8.0); EOSINOPHILS % (AUTO) 0.7 % (0.0-7.0); HEMATOCRIT 30.2 % (31.2-41.9); HEMOGLOBIN 10.3 g/dL (10.9-14.3); LYMPHOCYTES # (AUTO) 1.3 K/uL (20.0-40.0); LYMPHOCYTES % (AUTO) 24.3 % (20.5-51.5); MEAN CORPUSCULAR HEMOGLOBIN 33.3 uug (24.7-32.8); MEAN CORPUSCULAR HGB CONC 34 g/dL (32.3-35.6); MONOCYTES # (AUTO) 0.5 K/uL (2.0-10.0); MONOCYTES % (AUTO) 9.5 % (0.0-11.0); NEUTROPHILS # (AUTO) 3.4 K/uL (1.8-8.9); NEUTROPHILS % (AUTO) 64.5 % (38.5-71.5); PLATELET COUNT (AUTO) 434 K/uL (179-408); RED BLOOD CELL COUNT(AUTO) 3.08 MIL/uL (3.63-4.92); WHITE BLOOD COUNT (AUTO) 5.3 K/uL (3.8-11.8)
[2020-04-29 12:25] LABS: BILIRUBIN,TOTAL 0.2 mg/dL (0.2-1.0); CREATININE 0.9 mg/dL (0.6-1.3); MAGNESIUM 2.1 mg/dL (1.8-2.4); POTASSIUM 4.5 mmol/L (3.5-5.1); TOTAL PROTEIN, SERUM 7.2 g/dL (6.4-8.2)
== END 2020-04-29 23:59 | disposition home or self-care (01) ==
LOC: LAB 11:36
DX: C50.919 Malignant neoplasm of unspecified site of unspecified female breast (principal)
CPT/HCPCS: 36415; 83735; 85025; 86300

== ENCOUNTER 2020-05-13 11:15 | Outpatient (CLI) | payer BC, OTHER ==
[2020-05-13 11:32] LABS: BASOPHILS % (AUTO) 0.8 % (0.0-2.0); EOSINOPHILS % (AUTO) 0.6 % (0.0-7.0); HEMATOCRIT 30.2 % (31.2-41.9); HEMOGLOBIN 10.1 g/dL (10.9-14.3); LYMPHOCYTES # (AUTO) 1.3 K/uL (20.0-40.0); LYMPHOCYTES % (AUTO) 25.2 % (20.5-51.5); MEAN CORPUSCULAR HEMOGLOBIN 33.3 uug (24.7-32.8); MEAN CORPUSCULAR HGB CONC 34 g/dL (32.3-35.6); MEAN CORPUSCULAR VOLUME 99.5 fL (75.5-95.3); MONOCYTES # (AUTO) 0.6 K/uL (2.0-10.0); MONOCYTES % (AUTO) 11.4 % (0.0-11.0); NEUTROPHILS # (AUTO) 3.3 K/uL (1.8-8.9); PLATELET COUNT (AUTO) 206 K/uL (179-408); RED BLOOD CELL COUNT(AUTO) 3.04 MIL/uL (3.63-4.92); WHITE BLOOD COUNT (AUTO) 5.3 K/uL (3.8-11.8)
[2020-05-13 11:45] LABS: BILIRUBIN,TOTAL 0.2 mg/dL (0.2-1.0); CREATININE 0.9 mg/dL (0.6-1.3); MAGNESIUM 2.2 mg/dL (1.8-2.4); POTASSIUM 4.5 mmol/L (3.5-5.1); TOTAL PROTEIN, SERUM 7.2 g/dL (6.4-8.2)
== END 2020-05-13 23:59 | disposition home or self-care (01) ==
LOC: LAB 11:15
DX: C50.919 Malignant neoplasm of unspecified site of unspecified female breast (principal)
CPT/HCPCS: 36415; 83735; 85025; 86300

== ENCOUNTER 2020-05-20 11:07 | Outpatient (CLI) | payer BC, OTHER ==
[2020-05-20 11:35] LABS: BILIRUBIN,TOTAL 0.2 mg/dL (0.2-1.0); CREATININE 0.9 mg/dL (0.6-1.3); POTASSIUM 4.3 mmol/L (3.5-5.1); TOTAL PROTEIN, SERUM 7.6 g/dL (6.4-8.2)
[2020-05-20 11:36] LABS: BASOPHILS # (AUTO) 0.1 K/uL (0.0-8.0); BASOPHILS % (AUTO) 1.3 % (0.0-2.0); EOSINOPHILS # (AUTO) 0.1 K/uL (0.0-0.7); EOSINOPHILS % (AUTO) 1.3 % (0.0-7.0); HEMATOCRIT 31.2 % (31.2-41.9); HEMOGLOBIN 10.9 g/dL (10.9-14.3); LYMPHOCYTES # (AUTO) 1.1 K/uL (20.0-40.0); MEAN CORPUSCULAR HEMOGLOBIN 34.5 uug (24.7-32.8); MEAN CORPUSCULAR HGB CONC 35 g/dL (32.3-35.6); MEAN CORPUSCULAR VOLUME 99.3 fL (75.5-95.3); MONOCYTES # (AUTO) 0.4 K/uL (2.0-10.0); MONOCYTES % (AUTO) 7.6 % (0.0-11.0); NEUTROPHILS # (AUTO) 3.3 K/uL (1.8-8.9); NEUTROPHILS % (AUTO) 67.8 % (38.5-71.5); PLATELET COUNT (AUTO) 380 K/uL (179-408); RED BLOOD CELL COUNT(AUTO) 3.15 MIL/uL (3.63-4.92); WHITE BLOOD COUNT (AUTO) 4.9 K/uL (3.8-11.8)
== END 2020-05-20 23:59 | disposition home or self-care (01) ==
LOC: LAB 11:07
DX: C50.919 Malignant neoplasm of unspecified site of unspecified female breast (principal)
CPT/HCPCS: 36415; 83735; 85025; 86300

== ENCOUNTER 2020-05-27 11:32 | Outpatient (CLI) | payer BC, OTHER ==
[2020-05-27 12:07] LABS: BASOPHILS # (AUTO) 0.1 K/uL (0.0-8.0); BASOPHILS % (AUTO) 1.4 % (0.0-2.0); EOSINOPHILS # (AUTO) 0.1 K/uL (0.0-0.7); EOSINOPHILS % (AUTO) 2.3 % (0.0-7.0); HEMATOCRIT 31.2 % (31.2-41.9); HEMOGLOBIN 10.6 g/dL (10.9-14.3); LYMPHOCYTES # (AUTO) 1.1 K/uL (20.0-40.0); LYMPHOCYTES % (AUTO) 25.6 % (20.5-51.5); MEAN CORPUSCULAR HEMOGLOBIN 34.3 uug (24.7-32.8); MEAN CORPUSCULAR HGB CONC 34 g/dL (32.3-35.6); MONOCYTES # (AUTO) 0.1 K/uL (2.0-10.0); MONOCYTES % (AUTO) 2.8 % (0.0-11.0); NEUTROPHILS # (AUTO) 2.9 K/uL (1.8-8.9); NEUTROPHILS % (AUTO) 67.9 % (38.5-71.5); PLATELET COUNT (AUTO) 298 K/uL (179-408); RED BLOOD CELL COUNT(AUTO) 3.09 MIL/uL (3.63-4.92); WHITE BLOOD COUNT (AUTO) 4.2 K/uL (3.8-11.8)
[2020-05-28 00:46] LABS: LYMPHOCYTES % (MANUAL) 27 % (20-40); NEUTROPHILS % (MANUAL) 65 % (42-75)
[2020-05-28 00:47] LABS: EOSINOPHILS % (MANUAL) 3 % (0-8); MONOCYTES % (MANUAL) 5 % (2-10)
== END 2020-05-27 23:59 | disposition home or self-care (01) ==
LOC: LAB 11:32
DX: C50.919 Malignant neoplasm of unspecified site of unspecified female breast (principal)
CPT/HCPCS: 36415; 70030-TC; 85025

== ENCOUNTER 2020-06-03 11:49 | Outpatient (CLI) | payer BC, OTHER ==
[2020-06-03 12:09] LABS: HEMOGLOBIN 10.8 g/dL (10.9-14.3)
[2020-06-03 12:13] LABS: BASOPHILS # (AUTO) 0.1 K/uL (0.0-8.0); BASOPHILS % (AUTO) 2.3 % (0.0-2.0); EOSINOPHILS # (AUTO) 0.1 K/uL (0.0-0.7); EOSINOPHILS % (AUTO) 3.2 % (0.0-7.0); HEMATOCRIT 31.9 % (31.2-41.9); LYMPHOCYTES # (AUTO) 1.2 K/uL (20.0-40.0); LYMPHOCYTES % (AUTO) 44.4 % (20.5-51.5); MEAN CORPUSCULAR HEMOGLOBIN 34.4 uug (24.7-32.8); MEAN CORPUSCULAR HGB CONC 34 g/dL (32.3-35.6); MONOCYTES # (AUTO) 0.1 K/uL (2.0-10.0); MONOCYTES % (AUTO) 3.4 % (0.0-11.0); NEUTROPHILS # (AUTO) 1.3 K/uL (1.8-8.9); NEUTROPHILS % (AUTO) 46.7 % (38.5-71.5); PLATELET COUNT (AUTO) 292 K/uL (179-408); RED BLOOD CELL COUNT(AUTO) 3.13 MIL/uL (3.63-4.92); WHITE BLOOD COUNT (AUTO) 2.7 K/uL (3.8-11.8)
[2020-06-03 12:58] LABS: EOSINOPHILS % (MANUAL) 3 % (0-8); LYMPHOCYTES % (MANUAL) 45 % (20-40); MONOCYTES % (MANUAL) 5 % (2-10); NEUTROPHILS % (MANUAL) 47 % (42-75)
== END 2020-06-03 23:59 | disposition home or self-care (01) ==
LOC: LAB 11:49
DX: C50.919 Malignant neoplasm of unspecified site of unspecified female breast (principal)
CPT/HCPCS: 36415; 70030-TC; 85025

== ENCOUNTER 2020-06-17 11:40 | Outpatient (CLI) | payer BC, OTHER ==
[2020-06-17 12:42] LABS: BILIRUBIN,TOTAL 0.3 mg/dL (0.2-1.0); CREATININE 0.9 mg/dL (0.6-1.3); POTASSIUM 4.3 mmol/L (3.5-5.1); TOTAL PROTEIN, SERUM 7.3 g/dL (6.4-8.2)
[2020-06-17 12:47] LABS: BASOPHILS % (AUTO) 0.6 % (0.0-2.0); EOSINOPHILS # (AUTO) 0.1 K/uL (0.0-0.7); EOSINOPHILS % (AUTO) 1.3 % (0.0-7.0); HEMATOCRIT 32.2 % (31.2-41.9); LYMPHOCYTES % (AUTO) 17.6 % (20.5-51.5); MEAN CORPUSCULAR HEMOGLOBIN 35.1 uug (24.7-32.8); MEAN CORPUSCULAR HGB CONC 34 g/dL (32.3-35.6); MEAN CORPUSCULAR VOLUME 102.3 fL (75.5-95.3); MONOCYTES # (AUTO) 0.2 K/uL (2.0-10.0); MONOCYTES % (AUTO) 4.2 % (0.0-11.0); NEUTROPHILS # (AUTO) 4.5 K/uL (1.8-8.9); NEUTROPHILS % (AUTO) 76.3 % (38.5-71.5); PLATELET COUNT (AUTO) 251 K/uL (179-408); RED BLOOD CELL COUNT(AUTO) 3.14 MIL/uL (3.63-4.92); WHITE BLOOD COUNT (AUTO) 5.9 K/uL (3.8-11.8)
== END 2020-06-17 23:59 | disposition home or self-care (01) ==
LOC: LAB 11:40
DX: C50.919 Malignant neoplasm of unspecified site of unspecified female breast (principal)
CPT/HCPCS: 83735; 85025; 86300

== ENCOUNTER 2020-06-24 10:24 | Outpatient (CLI) | payer BC, OTHER ==
[2020-06-24 11:14] LABS: BILIRUBIN,TOTAL 0.5 mg/dL (0.2-1.0); CREATININE 0.8 mg/dL (0.6-1.3); POTASSIUM 4.5 mmol/L (3.5-5.1); TOTAL PROTEIN, SERUM 6.8 g/dL (6.4-8.2)
[2020-06-24 11:15] LABS: EOSINOPHILS # (AUTO) 0.1 K/uL (0.0-0.7); EOSINOPHILS % (AUTO) 2.9 % (0.0-7.0); HEMATOCRIT 30.9 % (31.2-41.9); HEMOGLOBIN 10.5 g/dL (10.9-14.3); LYMPHOCYTES # (AUTO) 1.2 K/uL (20.0-40.0); LYMPHOCYTES % (AUTO) 31.9 % (20.5-51.5); MEAN CORPUSCULAR HEMOGLOBIN 34.9 uug (24.7-32.8); MEAN CORPUSCULAR HGB CONC 34 g/dL (32.3-35.6); MONOCYTES # (AUTO) 0.1 K/uL (2.0-10.0); NEUTROPHILS # (AUTO) 2.2 K/uL (1.8-8.9); NEUTROPHILS % (AUTO) 60.2 % (38.5-71.5); PLATELET COUNT (AUTO) 292 K/uL (179-408); WHITE BLOOD COUNT (AUTO) 3.7 K/uL (3.8-11.8)
== END 2020-06-24 23:59 | disposition home or self-care (01) ==
LOC: LAB 10:24
DX: C50.919 Malignant neoplasm of unspecified site of unspecified female breast (principal)
CPT/HCPCS: 36415; 85025

== ENCOUNTER 2020-07-01 10:15 | Outpatient (CLI) | payer BC, OTHER ==
[2020-07-01 10:33] LABS: BASOPHILS % (AUTO) 1.3 % (0.0-2.0); EOSINOPHILS # (AUTO) 0.1 K/uL (0.0-0.7); EOSINOPHILS % (AUTO) 4.7 % (0.0-7.0); HEMATOCRIT 31.3 % (31.2-41.9); HEMOGLOBIN 10.6 g/dL (10.9-14.3); LYMPHOCYTES # (AUTO) 1.1 K/uL (20.0-40.0); LYMPHOCYTES % (AUTO) 40.6 % (20.5-51.5); MEAN CORPUSCULAR HGB CONC 34 g/dL (32.3-35.6); MEAN CORPUSCULAR VOLUME 103.7 fL (75.5-95.3); MONOCYTES # (AUTO) 0.1 K/uL (2.0-10.0); MONOCYTES % (AUTO) 3.5 % (0.0-11.0); NEUTROPHILS # (AUTO) 1.3 K/uL (1.8-8.9); NEUTROPHILS % (AUTO) 49.9 % (38.5-71.5); PLATELET COUNT (AUTO) 331 K/uL (179-408); RED BLOOD CELL COUNT(AUTO) 3.02 MIL/uL (3.63-4.92); WHITE BLOOD COUNT (AUTO) 2.7 K/uL (3.8-11.8)
[2020-07-01 10:45] LABS: BILIRUBIN,TOTAL 0.4 mg/dL (0.2-1.0); CREATININE 0.9 mg/dL (0.6-1.3); POTASSIUM 4.7 mmol/L (3.5-5.1); TOTAL PROTEIN, SERUM 6.9 g/dL (6.4-8.2)
[2020-07-01 16:10] LABS: BASOPHILS % (MANUAL) 1 % (0-2); EOSINOPHILS % (MANUAL) 5 % (0-8); LYMPHOCYTES % (MANUAL) 41 % (20-40); MONOCYTES % (MANUAL) 6 % (2-10); NEUTROPHILS % (MANUAL) 47 % (42-75)
== END 2020-07-01 23:59 | disposition home or self-care (01) ==
LOC: LAB 10:15
DX: C50.919 Malignant neoplasm of unspecified site of unspecified female breast (principal)
CPT/HCPCS: 70030-TC; 85025; 86300

== ENCOUNTER 2020-07-15 09:35 | Outpatient (CLI) | payer BC, OTHER ==
[2020-07-15 10:16] LABS: BASOPHILS % (AUTO) 0.7 % (0.0-2.0); EOSINOPHILS # (AUTO) 0.1 K/uL (0.0-0.7); EOSINOPHILS % (AUTO) 1.2 % (0.0-7.0); HEMATOCRIT 37.1 % (31.2-41.9); HEMOGLOBIN 12.4 g/dL (10.9-14.3); LYMPHOCYTES # (AUTO) 1.4 K/uL (20.0-40.0); LYMPHOCYTES % (AUTO) 20.5 % (20.5-51.5); MEAN CORPUSCULAR HEMOGLOBIN 34.6 uug (24.7-32.8); MEAN CORPUSCULAR HGB CONC 34 g/dL (32.3-35.6); MEAN CORPUSCULAR VOLUME 103.2 fL (75.5-95.3); MONOCYTES # (AUTO) 0.3 K/uL (2.0-10.0); MONOCYTES % (AUTO) 5.3 % (0.0-11.0); NEUTROPHILS # (AUTO) 4.8 K/uL (1.8-8.9); NEUTROPHILS % (AUTO) 72.3 % (38.5-71.5); PLATELET COUNT (AUTO) 219 K/uL (179-408); RED BLOOD CELL COUNT(AUTO) 3.59 MIL/uL (3.63-4.92); WHITE BLOOD COUNT (AUTO) 6.6 K/uL (3.8-11.8)
[2020-07-15 10:50] LABS: BILIRUBIN,TOTAL 0.2 mg/dL (0.2-1.0); CREATININE 0.8 mg/dL (0.6-1.3); POTASSIUM 4.5 mmol/L (3.5-5.1); TOTAL PROTEIN, SERUM 7.4 g/dL (6.4-8.2)
== END 2020-07-15 23:59 | disposition home or self-care (01) ==
LOC: LAB 09:35
DX: C50.919 Malignant neoplasm of unspecified site of unspecified female breast (principal)
CPT/HCPCS: 36415; 85025

== ENCOUNTER 2020-07-22 10:30 | Outpatient (CLI) | payer BC, OTHER ==
[2020-07-22 11:11] LABS: BASOPHILS # (AUTO) 0.1 K/uL (0.0-8.0); BASOPHILS % (AUTO) 1.2 % (0.0-2.0); EOSINOPHILS # (AUTO) 0.1 K/uL (0.0-0.7); EOSINOPHILS % (AUTO) 2.1 % (0.0-7.0); HEMATOCRIT 35.5 % (31.2-41.9); HEMOGLOBIN 12.2 g/dL (10.9-14.3); LYMPHOCYTES # (AUTO) 1.4 K/uL (20.0-40.0); LYMPHOCYTES % (AUTO) 29.9 % (20.5-51.5); MEAN CORPUSCULAR HEMOGLOBIN 35.1 uug (24.7-32.8); MEAN CORPUSCULAR HGB CONC 34 g/dL (32.3-35.6); MEAN CORPUSCULAR VOLUME 102.6 fL (75.5-95.3); MONOCYTES # (AUTO) 0.2 K/uL (2.0-10.0); NEUTROPHILS # (AUTO) 2.8 K/uL (1.8-8.9); NEUTROPHILS % (AUTO) 62.8 % (38.5-71.5); PLATELET COUNT (AUTO) 291 K/uL (179-408); RED BLOOD CELL COUNT(AUTO) 3.46 MIL/uL (3.63-4.92); WHITE BLOOD COUNT (AUTO) 4.5 K/uL (3.8-11.8)
[2020-07-22 11:32] LABS: BILIRUBIN,TOTAL 0.2 mg/dL (0.2-1.0); CREATININE 0.8 mg/dL (0.6-1.3); POTASSIUM 4.3 mmol/L (3.5-5.1); TOTAL PROTEIN, SERUM 7.2 g/dL (6.4-8.2)
== END 2020-07-22 23:59 | disposition home or self-care (01) ==
LOC: LAB 10:30
DX: C50.919 Malignant neoplasm of unspecified site of unspecified female breast (principal)
CPT/HCPCS: 36415; 85025

== ENCOUNTER 2020-07-29 09:53 | Outpatient (CLI) | payer BC, OTHER ==
[2020-07-29 10:22] LABS: BASOPHILS % (AUTO) 1.3 % (0.0-2.0); EOSINOPHILS # (AUTO) 0.1 K/uL (0.0-0.7); EOSINOPHILS % (AUTO) 3.4 % (0.0-7.0); HEMATOCRIT 34.6 % (31.2-41.9); HEMOGLOBIN 11.7 g/dL (10.9-14.3); LYMPHOCYTES # (AUTO) 1.5 K/uL (20.0-40.0); LYMPHOCYTES % (AUTO) 43.9 % (20.5-51.5); MEAN CORPUSCULAR HEMOGLOBIN 34.8 uug (24.7-32.8); MEAN CORPUSCULAR HGB CONC 34 g/dL (32.3-35.6); MEAN CORPUSCULAR VOLUME 102.5 fL (75.5-95.3); MONOCYTES # (AUTO) 0.1 K/uL (2.0-10.0); NEUTROPHILS # (AUTO) 1.6 K/uL (1.8-8.9); NEUTROPHILS % (AUTO) 47.4 % (38.5-71.5); PLATELET COUNT (AUTO) 311 K/uL (179-408); RED BLOOD CELL COUNT(AUTO) 3.37 MIL/uL (3.63-4.92); WHITE BLOOD COUNT (AUTO) 3.4 K/uL (3.8-11.8)
[2020-07-29 10:29] LABS: BILIRUBIN,TOTAL 0.2 mg/dL (0.2-1.0); CREATININE 0.8 mg/dL (0.6-1.3); POTASSIUM 4.5 mmol/L (3.5-5.1); TOTAL PROTEIN, SERUM 7.2 g/dL (6.4-8.2)
== END 2020-07-29 23:59 | disposition home or self-care (01) ==
LOC: LAB 09:53
DX: C50.919 Malignant neoplasm of unspecified site of unspecified female breast (principal)
CPT/HCPCS: 36415; 85025

== ENCOUNTER 2020-08-12 10:18 | Outpatient (CLI) | payer BC, OTHER ==
[2020-08-12 11:00] LABS: BASOPHILS % (AUTO) 0.4 % (0.0-2.0); EOSINOPHILS # (AUTO) 0.1 K/uL (0.0-0.7); EOSINOPHILS % (AUTO) 1.9 % (0.0-7.0); HEMATOCRIT 34.6 % (31.2-41.9); HEMOGLOBIN 11.7 g/dL (10.9-14.3); LYMPHOCYTES # (AUTO) 1.4 K/uL (20.0-40.0); LYMPHOCYTES % (AUTO) 21.9 % (20.5-51.5); MEAN CORPUSCULAR HGB CONC 34 g/dL (32.3-35.6); MEAN CORPUSCULAR VOLUME 100.7 fL (75.5-95.3); MONOCYTES # (AUTO) 0.3 K/uL (2.0-10.0); MONOCYTES % (AUTO) 5.3 % (0.0-11.0); NEUTROPHILS # (AUTO) 4.3 K/uL (1.8-8.9); NEUTROPHILS % (AUTO) 70.5 % (38.5-71.5); PLATELET COUNT (AUTO) 242 K/uL (179-408); RED BLOOD CELL COUNT(AUTO) 3.44 MIL/uL (3.63-4.92); WHITE BLOOD COUNT (AUTO) 6.2 K/uL (3.8-11.8)
[2020-08-12 11:16] LABS: BILIRUBIN,TOTAL 0.3 mg/dL (0.2-1.0); CREATININE 0.9 mg/dL (0.6-1.3); POTASSIUM 4.8 mmol/L (3.5-5.1); TOTAL PROTEIN, SERUM 7.2 g/dL (6.4-8.2)
[2020-08-13 09:53] LABS: CANCER ANTIGEN 15-3 27.3
== END 2020-08-12 23:59 | disposition home or self-care (01) ==
LOC: LAB 10:18
DX: C50.919 Malignant neoplasm of unspecified site of unspecified female breast (principal)
CPT/HCPCS: 36415; 85025; 86300

== ENCOUNTER 2020-08-19 07:12 | Outpatient (CLI) | payer BC, OTHER ==
[2020-08-19 11:04] LABS: BASOPHILS % (AUTO) 1.4 % (0.0-2.0); EOSINOPHILS # (AUTO) 0.1 K/uL (0.0-0.7); EOSINOPHILS % (AUTO) 2.5 % (0.0-7.0); HEMATOCRIT 32.8 % (31.2-41.9); LYMPHOCYTES # (AUTO) 1.3 K/uL (20.0-40.0); LYMPHOCYTES % (AUTO) 40.2 % (20.5-51.5); MEAN CORPUSCULAR HEMOGLOBIN 33.7 uug (24.7-32.8); MEAN CORPUSCULAR HGB CONC 34 g/dL (32.3-35.6); MEAN CORPUSCULAR VOLUME 100.6 fL (75.5-95.3); MONOCYTES # (AUTO) 0.1 K/uL (2.0-10.0); NEUTROPHILS # (AUTO) 1.7 K/uL (1.8-8.9); NEUTROPHILS % (AUTO) 51.9 % (38.5-71.5); PLATELET COUNT (AUTO) 314 K/uL (179-408); RED BLOOD CELL COUNT(AUTO) 3.26 MIL/uL (3.63-4.92); WHITE BLOOD COUNT (AUTO) 3.3 K/uL (3.8-11.8)
[2020-08-19 11:05] LABS: BILIRUBIN,TOTAL 0.6 mg/dL (0.2-1.0); CREATININE 0.9 mg/dL (0.6-1.3); POTASSIUM 4.6 mmol/L (3.5-5.1); TOTAL PROTEIN, SERUM 7.1 g/dL (6.4-8.2)
== END 2020-08-19 23:59 | disposition home or self-care (01) ==
LOC: LAB 07:12
DX: C50.919 Malignant neoplasm of unspecified site of unspecified female breast (principal)
CPT/HCPCS: 36415; 85025

== ENCOUNTER 2020-08-26 10:06 | Outpatient (CLI) | payer BC, OTHER ==
[2020-08-26 10:19] LABS: BASOPHILS % (AUTO) 1.6 % (0.0-2.0); EOSINOPHILS # (AUTO) 0.1 K/uL (0.0-0.7); EOSINOPHILS % (AUTO) 3.4 % (0.0-7.0); HEMATOCRIT 33.7 % (31.2-41.9); HEMOGLOBIN 11.4 g/dL (10.9-14.3); LYMPHOCYTES # (AUTO) 1.3 K/uL (20.0-40.0); LYMPHOCYTES % (AUTO) 45.8 % (20.5-51.5); MEAN CORPUSCULAR HEMOGLOBIN 33.9 uug (24.7-32.8); MEAN CORPUSCULAR HGB CONC 34 g/dL (32.3-35.6); MEAN CORPUSCULAR VOLUME 100.4 fL (75.5-95.3); MONOCYTES # (AUTO) 0.1 K/uL (2.0-10.0); MONOCYTES % (AUTO) 2.9 % (0.0-11.0); NEUTROPHILS # (AUTO) 1.3 K/uL (1.8-8.9); NEUTROPHILS % (AUTO) 46.3 % (38.5-71.5); PLATELET COUNT (AUTO) 351 K/uL (179-408); RED BLOOD CELL COUNT(AUTO) 3.35 MIL/uL (3.63-4.92); WHITE BLOOD COUNT (AUTO) 2.8 K/uL (3.8-11.8)
[2020-08-26 10:30] LABS: BILIRUBIN,TOTAL 0.5 mg/dL (0.2-1.0); TOTAL PROTEIN, SERUM 7.6 g/dL (6.4-8.2)
[2020-08-26 10:45] LABS: EOSINOPHILS % (MANUAL) 6 % (0-8); LYMPHOCYTES % (MANUAL) 43 % (20-40); MONOCYTES % (MANUAL) 1 % (2-10); MYELOCYTES % 1 % (0-0); NEUTROPHILS % (MANUAL) 49 % (42-75)
== END 2020-08-26 23:59 | disposition home or self-care (01) ==
LOC: LAB 10:06
DX: C50.919 Malignant neoplasm of unspecified site of unspecified female breast (principal)
CPT/HCPCS: 36415; 70030-TC; 85025

== ENCOUNTER 2020-09-09 10:10 | Outpatient (CLI) | payer BC, OTHER ==
[2020-09-09 10:25] LABS: *BILIRUBIN,URIN NEGATIVE (NEGATIVE); *BLOOD, URINE NEGATIVE (NEGATIVE); *CLARITY,URINE SLIGHTLY CLOUDY (CLEAR); *COLOR,URINE YELLOW (YELLOW); *KETONES,URINE NEGATIVE (NEGATIVE); *UROBILINOGEN,URINE 0.2 E.U./dl (NORMAL); LEUKOCYTE ESTERASE ,URINE NEGATIVE (NEGATIVE); NITRITE, URINE NEGATIVE (NEGATIVE); UGLUCOSE NEGATIVE (NEGATIVE)
[2020-09-09 10:41] LABS: BASOPHILS % (AUTO) 0.3 % (0.0-2.0); EOSINOPHILS # (AUTO) 0.1 K/uL (0.0-0.7); EOSINOPHILS % (AUTO) 0.8 % (0.0-7.0); HEMATOCRIT 34.9 % (31.2-41.9); HEMOGLOBIN 11.7 g/dL (10.9-14.3); LYMPHOCYTES # (AUTO) 1.3 K/uL (20.0-40.0); LYMPHOCYTES % (AUTO) 13.5 % (20.5-51.5); MEAN CORPUSCULAR HEMOGLOBIN 33.9 uug (24.7-32.8); MEAN CORPUSCULAR HGB CONC 34 g/dL (32.3-35.6); MEAN CORPUSCULAR VOLUME 101.2 fL (75.5-95.3); MONOCYTES # (AUTO) 0.4 K/uL (2.0-10.0); NEUTROPHILS # (AUTO) 7.9 K/uL (1.8-8.9); NEUTROPHILS % (AUTO) 81.4 % (38.5-71.5); PLATELET COUNT (AUTO) 216 K/uL (179-408); RED BLOOD CELL COUNT(AUTO) 3.45 MIL/uL (3.63-4.92); WHITE BLOOD COUNT (AUTO) 9.6 K/uL (3.8-11.8)
[2020-09-09 10:59] LABS: BILIRUBIN,TOTAL 0.4 mg/dL (0.2-1.0); CREATININE 0.9 mg/dL (0.6-1.3); TOTAL PROTEIN, SERUM 7.3 g/dL (6.4-8.2)
[2020-09-09 12:53] LABS: BACTERIA,URINE NONE SEEN /HPF (NONE SEEN); RBC,URINE NONE SEEN /HPF (0-3); SQUAMOUS EPITHELIAL CELL,UR FEW /HPF (NONE SEEN); WBC,URINE NONE SEEN /HPF (0-3)
== END 2020-09-09 23:59 | disposition home or self-care (01) ==
LOC: LAB 10:10
DX: Z01.818 Encounter for other preprocedural examination (principal); C50.919 Malignant neoplasm of unspecified site of unspecified female breast
CPT/HCPCS: 36415; 71046; 85025; 85610; 85730

== ENCOUNTER 2020-09-16 07:48 | Outpatient (CLI) | payer BC, OTHER | END 2020-09-16 23:59 | disposition home or self-care (01) | LOC: LAB 07:48 | PROVIDERS: ATTEND Surgery | DX: Z01.812 Encounter for preprocedural laboratory examination (principal); Z20.822 Contact with and (suspected) exposure to COVID-19; C50.911 Malignant neoplasm of unspecified site of right female breast ==

== ENCOUNTER 2020-09-17 10:13 | Inpatient (IN) | payer BC, OTHER ==
[~2020-09-17] VITALS: Ht 170.2 cm; Wt 90.7 kg
[2020-09-17] MEDS ORDERED: CEFAZOLIN 2 G in IV DEXTROSE 5% 100 ML IV ONE (10:30)
[2020-09-17 11:00] LABS: *URINE HCG, QUAL NEG (NEGATIVE)
[2020-09-17] MEDS ORDERED: GLYCOPYRROLATE 0.2 MG/ML VIAL MC ONE (11:03)
[2020-09-17] MEDS ORDERED: NEOSTIGMINE METHYLSULFATE 10 MG/10 ML VIAL IV ONE (11:03)
[2020-09-17] MEDS ORDERED: DEXAMETHASONE SOD PHOSPHATE 4 MG INJ IV ONE (11:03)
[2020-09-17] MEDS ORDERED: LIDOCAINE-MPF 2% 5 ML VIAL MC ONE (11:03)
[2020-09-17] MEDS ORDERED: PROPOFOL 200 MG/20 ML BOTTLE IV ONE (11:03)
[2020-09-17] MEDS ORDERED: PHENYLEPHRINE 10 MG/1 ML VIAL MC ONE (11:03)
[2020-09-17] MEDS ORDERED: ONDANSETRON 4 MG/2 ML VIAL IV ONE (11:03)
[2020-09-17] MEDS ORDERED: KETOROLAC TROMETHAMINE 60 MG INJ IM ONE (11:03)
[2020-09-17] MEDS ORDERED: METOCLOPRAMIDE HCL 10 MG/2 ML VIAL IV ONE (11:03)
[2020-09-17] MEDS ORDERED: SEVOFLURANE 250 ML BOTTLE IH ONE (11:03)
[2020-09-17] MEDS ORDERED: METHYLENE BLUE 50 MG/10 ML AMPUL (0.5%) ONE (11:42)
[2020-09-17] MEDS ORDERED: BUPIVACAINE/EPI PF 0.5% 10 ML VIAL ONE (11:42)
[2020-09-17] MEDS ORDERED: FENTANYL CITRATE 100 MCG/2 ML AMPUL ONE (12:02)
[2020-09-17] MEDS ORDERED: MIDAZOLAM HCL 2 MG/2 ML VIAL ONE (12:02)
[2020-09-17] MEDS ORDERED: ROCURONIUM BROMIDE 50 MG/5 ML VIAL ONE (12:04)
[2020-09-17] MEDS ORDERED: SUCCINYLCHOLINE CHLORIDE 200 MG/10 ML VIAL ONE (12:04)
[2020-09-17] MEDS ORDERED: HYDROMORPHONE 2 MG/1 ML DISP.SYRIN ONE (12:46)
[2020-09-17] MEDS ORDERED: HYDROMORPHONE 1 MG/1 ML DISP.SYRIN IV PRN (17:15)
[2020-09-17] MEDS ORDERED: ONDANSETRON 4 MG/2 ML VIAL IV PRN ×2 (17:15→17:30)
[2020-09-17] MEDS ORDERED: ACETAMINOPHEN 325 MG TABLET PO PRN ×2 (17:15→17:30)
[2020-09-17] MEDS ORDERED: HYDROCODONE/APAP 5-325MG TABLET PO PRN ×2 (17:15→17:30)
[2020-09-17] MEDS ORDERED: IV 1/2NS 1000 ML 1,000 ML IV PRN (17:30)
[2020-09-17] MEDS ORDERED: Z GUARD REMEDY PASTE 57 GM TUBE TOP PRN (17:30)
[2020-09-17] MEDS ORDERED: MAGNESIUM HYDROXIDE 30 ML LIQUID UDC PO PRN (17:30)
[2020-09-17] MEDS ORDERED: ZOLPIDEM 5 MG TABLET PO PRN (17:30)
[2020-09-17] MEDS ORDERED: METOCLOPRAMIDE HCL 10 MG/2 ML VIAL IV PRN (18:00)
[2020-09-17 18:30] VITALS: BP 132/60
--- NOTE | 2020-09-17 18:30 | NUR ---
Received patient from OR, awake, alert and oriented times 4. Patient is stable. Patient IV is on the left wrist running NS bolus. Pt is on 2 L of oxygen NC. Patient has a bandage on bilateral breast with two JETT drains on the right and one on the left. Vitals are within normal limits. Safety precautions are in place. Will continue to monitor and turn over to the oncoming nurse.
[2020-09-17 18:56] VITALS: BP 146/69
--- NOTE | 2020-09-17 19:00 | NUR ---
RECEIVED PT AWAKE, ALERT AND ORIENTEDX4. PT IN NO ACUTE DISTRESS. PT NOTED TO HAVE 2 JETT DRAIN ON RIGHT SIDE AND 1 JETT DRAIN ON LEFT SIDE.PT IV INTACT. ADMISSION PROCESS AND CARE PLAN INITIATED. SAFETY AND COMFORT PROVIDED. WILL CONTINUE TO MONITOR.
[2020-09-17 20:00] VITALS: BP 142/69
--- NOTE | 2020-09-17 22:00 | NUR ---
PT WAS SEEN BY DR. MARTINI. PT IN NO ACUTE DISTRESS. WILL CONTINUE TO MONITOR.
--- NOTE | 2020-09-17 22:40 | NUR ---
PT REFUSED IV INSERTION . WILL LET MD BE AWARE. PT IN NO ACUTE DISTRESS
--- NOTE | 2020-09-17 22:45 | NUR ---
PT JETT DRAIN OUTPUT ON LEFT SIDE WAS 30ML, JETT DRAIN ON RIGHT SIDE NUMBER ONE WAS 20ML AND SECOND JETT DRAIN WAS 10ML. PT IN NO ACUTE DISTRESS. ELEVATED BOTH ARMS WITH PILLOW TO DECREASE SWELLING OF BILATERAL ARMS AND HANDS . WILL CONTINUE TO MONITOR.
[2020-09-18 04:00] VITALS: BP 145/66
--- NOTE | 2020-09-18 06:22 | NUR ---
PT SLEPT INTERMITTENTLY. PT IN NO ACUTE DISTRESS. PRESCRIBED MEDICATION GIVEN AND PT TOLERATED IT WELL. PT JETT ON RIGHT AND LEFT SIDE OF THE PT ARE DRAINING WELL. ELEVATE BILATERAL ARMS . PT COOPERATIVE WITH CARE. SAFETY AND COMFORT PROVIDED. ALL NEEDS ARE MET. WILL ENDORSE TO INCOMING NURSE FOR CONTINUITY OF CARE. Addendum: 09/18/20 at 0634 by ABIMAEL DUMONT RN USER ERROR
--- NOTE | 2020-09-18 06:34 | NUR ---
PT SLEPT INTERMITTENTLY. PT IN NO ACUTE DISTRESS. NO PRN MEDICATIONS GIVEN. PT JETT ON RIGHT AND LEFT SIDE OF THE PT ARE DRAINING WELL. DRAINED 30ML ON LEFT SIDE JETT. RIGHT SIDE JETT FIRST DRAINED 20ML. AND SECOND JETT DRAINED 20ML. ELEVATE BILATERAL ARMS. PT COOPERATIVE WITH CARE. SAFETY AND COMFORT PROVIDED. ALL NEEDS ARE MET. WILL ENDORSE TO INCOMING NURSE FOR CONTINUITY OF CARE.
--- NOTE | 2020-09-18 06:35 | NUR ---
INFORMED TIMBER ESTIMATOR REGARDING PT REFUSED REINSERTION OF IV AND PT WANTS TO BE DISCHARGE TODAY. TIMBER ESTIMATOR ORDERED TO ENDORSE TO INCOMING HOSPITALIST REGARDING PT REFUSAL OF REINSERTION OF IV AND PT WANTS TO GO HOME.
[2020-09-18 07:10] LABS: BASOPHILS % (AUTO) 0.2 % (0.0-2.0); EOSINOPHILS % (AUTO) 0.2 % (0.0-7.0); HEMATOCRIT 29.4 % (31.2-41.9); HEMOGLOBIN 9.9 g/dL (10.9-14.3); LYMPHOCYTES # (AUTO) 1.1 K/uL (20.0-40.0); LYMPHOCYTES % (AUTO) 10.2 % (20.5-51.5); MEAN CORPUSCULAR HEMOGLOBIN 34.1 uug (24.7-32.8); MEAN CORPUSCULAR HGB CONC 34 g/dL (32.3-35.6); MEAN CORPUSCULAR VOLUME 100.7 fL (75.5-95.3); MONOCYTES # (AUTO) 0.7 K/uL (2.0-10.0); NEUTROPHILS # (AUTO) 9.3 K/uL (1.8-8.9); NEUTROPHILS % (AUTO) 83.4 % (38.5-71.5); PLATELET COUNT (AUTO) 363 K/uL (179-408); RED BLOOD CELL COUNT(AUTO) 2.92 MIL/uL (3.63-4.92); WHITE BLOOD COUNT (AUTO) 11.2 K/uL (3.8-11.8)
[2020-09-18 07:23] LABS: BILIRUBIN,TOTAL 0.5 mg/dL (0.2-1.0); CREATININE 0.8 mg/dL (0.6-1.3); MAGNESIUM 2.2 mg/dL (1.8-2.4); PHOSPHOROUS 4.1 mg/dL (2.5-4.9); POTASSIUM 3.9 mmol/L (3.5-5.1); TOTAL PROTEIN, SERUM 6.6 g/dL (6.4-8.2)
--- NOTE | 2020-09-18 07:30 | NUR ---
Received patient resting in bed awake, alert and oriented times 4. No sign of distress noted. Pt is saturating well on room air. Pt says pain on right breast in between a 1-2/10. She does not want any pain medication at this time. JETT drains are intact and draining. Pt currently has no IV access and does not want an insertion at this time. Bandages is intact and not soiled. Safety measures are in place. Will continue to monitor.
[2020-09-18 11:35] VITALS: BP 133/61
[2020-09-18] MEDS ORDERED: MULT-594 PO (14:11)
[2020-09-18 15:35] VITALS: BP 136/53
--- NOTE | 2020-09-18 17:06 | NUR ---
Dr Kennedy spoke with patient, will keep her over night and administer a dose of antibiotics. He will reassess pt for discharge in the morning. Will continue to monitor.
--- NOTE | 2020-09-18 17:15 | NUR ---
JETT drain output, R1 20mls, R2 15mls, L 30mls output. will continue to monitor.
--- NOTE | 2020-09-18 17:26 | NUR ---
gave order to access the portacath.
--- NOTE | 2020-09-18 19:30 | NUR ---
Received patient lying in bed, at bedside. AAOx4. In no acute distress. Afebrile. Pain level 1-2/10 and tolerable per pt. JETT drain on tha chest area intact and draining serosanguineous drainage. Post a cath on left chest area intact and patent. IVF infusing. Dressing to chest area dry and intact. Safety measure initiated and call bhat within reached.
--- NOTE | 2020-09-18 19:44 | NUR ---
Assessed patient's marissa cath. Patient tolerated procedure well. Patient is left resting in bed. No sign of distress. Safety measures implemented. Will endorse to oncoming nurse.
[2020-09-18] MEDS ORDERED: PIPERACILLIN SODIUM/TAZOBACTAM 4.5 G in IV DEXTROSE 5% 50 ML IV ONE (20:00)
[2020-09-18 20:21] VITALS: BP 153/70
[2020-09-19] MEDS ORDERED: PIPERACILLIN SODIUM/TAZOBACTAM 3.37 G in IV DEXTROSE 5% 100 ML IV SCH (04:00)
[2020-09-19 04:24] VITALS: BP 138/67
--- NOTE | 2020-09-19 06:07 | NUR ---
Slept well last night. AAOx4. In no acute distress. Afebrile. No complain of pain or SOB. JETT drain on bilateral chest area intact and draining serosanguineous drainage. Port a cath on left chest area intact and patent. IVF infusing. No adverse effect noted from IV antibiotics. Dressing to chest area clean and dry. Needs attended to and met. Safety measure maintained and call bhat within reached.
--- NOTE | 2020-09-19 06:19 | NUR ---
JETT with serosanguineous drainage as follow: right upper chest = 38ml, Right lower chest = 35ml, left chest = 45ml.
--- NOTE | 2020-09-19 07:30 | NUR ---
START OF SHIFT: received change of shift report, pt a/ox4, IV access on the left chest portacath, IVF infusing 1/2 NS at 75cc/hr. pt has 2 JETT drains on the right side and 1 on the left. Pt on room air, no signs of distress, no reports of pain at this time, pt BRP steady gait, will continue to monitor.
[2020-09-19 07:40] VITALS: BP 134/65
--- NOTE | 2020-09-19 11:10 | NUR ---
DISCHARGE: pt discharged home with all belongings, paperwork and prescription in hand. pt a/o x4, ID removed, pt has 2 JETT drains on the right side and 1 on the left. FREDDIE Farmer stated "surgical wounds look fine, pt has follow up appointment at the office". Pt refused photos. Pt on room air, no signs of distress, no reports of pain at this time, pt BRP steady gait, pt went home with , Ronnie.
== END 2020-09-19 11:10 | disposition home or self-care (01) | DRG 580 ==
LOC: DS 10:13 → MEDSURG3 20:03
PROVIDERS: ADMIT Internal Medicine; ATTEND Internal Medicine
PROC: 0HTV0ZZ Resection of Bilateral Breast, Open Approach (ICD-10-PCS; principal; 2020-09-17)
PROC: 07B50ZZ Excision of Right Axillary Lymphatic, Open Approach (ICD-10-PCS; 2020-09-17)
PROC: 07B70ZZ Excision of Thorax Lymphatic, Open Approach (ICD-10-PCS; 2020-09-17)
DX: C50.911 Malignant neoplasm of unspecified site of right female breast (principal); C77.3 Secondary and unspecified malignant neoplasm of axilla and upper limb lymph nodes; D64.81 Anemia due to antineoplastic chemotherapy; E78.5 Hyperlipidemia, unspecified; Z92.21 Personal history of antineoplastic chemotherapy; D63.8 Anemia in other chronic diseases classified elsewhere; T45.1X5A Adverse effect of antineoplastic and immunosuppressive drugs, initial encounter; Y92.89 Other specified places as the place of occurrence of the external cause
CPT/HCPCS: 36415; 83735; 84100; 84703; 85025; A4649; A4663; G0378; J0330; J0690; J1100; J1170; J1885; J2250; J2370; J2405; J2543; J2765; J3010; J3490; J7060

== ENCOUNTER 2020-10-14 12:12 | Outpatient (CLI) | payer BC, OTHER ==
[~2020-10-14 12:12] MED LIST changes: -ATOR10TA PO; -DOCU100C36 PO; -DOXY100T2 PO; -LEVO750T21 PO; +MULT-594 PO
[2020-10-14 12:59] LABS: BASOPHILS % (AUTO) 0.8 % (0.0-2.0); EOSINOPHILS # (AUTO) 0.2 K/uL (0.0-0.7); EOSINOPHILS % (AUTO) 3.9 % (0.0-7.0); HEMATOCRIT 37.5 % (31.2-41.9); HEMOGLOBIN 12.5 g/dL (10.9-14.3); LYMPHOCYTES # (AUTO) 1.5 K/uL (20.0-40.0); LYMPHOCYTES % (AUTO) 34.4 % (20.5-51.5); MEAN CORPUSCULAR HEMOGLOBIN 32.9 uug (24.7-32.8); MEAN CORPUSCULAR HGB CONC 33 g/dL (32.3-35.6); MEAN CORPUSCULAR VOLUME 98.9 fL (75.5-95.3); MONOCYTES # (AUTO) 0.4 K/uL (2.0-10.0); MONOCYTES % (AUTO) 8.2 % (0.0-11.0); NEUTROPHILS # (AUTO) 2.3 K/uL (1.8-8.9); NEUTROPHILS % (AUTO) 52.7 % (38.5-71.5); PLATELET COUNT (AUTO) 267 K/uL (179-408); RED BLOOD CELL COUNT(AUTO) 3.79 MIL/uL (3.63-4.92); WHITE BLOOD COUNT (AUTO) 4.3 K/uL (3.8-11.8)
[2020-10-14 13:03] LABS: BILIRUBIN,TOTAL 0.4 mg/dL (0.2-1.0); CREATININE 0.9 mg/dL (0.6-1.3); POTASSIUM 4.4 mmol/L (3.5-5.1); TOTAL PROTEIN, SERUM 7.3 g/dL (6.4-8.2)
[2020-10-15 04:06] LABS: CANCER ANTIGEN 15-3 14.8 U/mL (0.0-25.0)
== END 2020-10-14 23:59 | disposition home or self-care (01) ==
LOC: LAB 12:12
DX: C50.919 Malignant neoplasm of unspecified site of unspecified female breast (principal)
CPT/HCPCS: 36415; 85025; 86300

== ENCOUNTER 2020-12-04 11:15 | Outpatient (CLI) | payer BC, OTHER ==
[2020-12-04 12:06] LABS: HEMATOCRIT 38.3 % (31.2-41.9); MEAN CORPUSCULAR HEMOGLOBIN 32.3 uug (24.7-32.8); MEAN CORPUSCULAR VOLUME 95.6 fL (75.5-95.3); PLATELET COUNT (AUTO) 261 K/uL (179-408)
[2020-12-04 12:19] LABS: BILIRUBIN,TOTAL 0.4 mg/dL (0.2-1.0); CREATININE 0.9 mg/dL (0.6-1.3); MAGNESIUM 2.2 mg/dL (1.8-2.4); POTASSIUM 4.6 mmol/L (3.5-5.1); TOTAL PROTEIN, SERUM 7.7 g/dL (6.4-8.2)
[2020-12-05 10:36] LABS: CANCER ANTIGEN 15-3 9.8
== END 2020-12-04 23:59 | disposition home or self-care (01) ==
LOC: LAB 11:15
DX: C50.919 Malignant neoplasm of unspecified site of unspecified female breast (principal)
CPT/HCPCS: 36415; 82306; 83735; 85025; 86300

== ENCOUNTER 2021-01-08 11:41 | Outpatient (CLI) | payer BC, OTHER ==
[2021-01-08 12:32] LABS: HEMATOCRIT 37.8 % (31.2-41.9); MEAN CORPUSCULAR VOLUME 95.1 fL (75.5-95.3); PLATELET COUNT (AUTO) 264 K/uL (179-408)
[2021-01-08 12:41] LABS: BILIRUBIN,TOTAL 0.3 mg/dL (0.2-1.0); CREATININE 0.9 mg/dL (0.6-1.3); POTASSIUM 4.5 mmol/L (3.5-5.1); TOTAL PROTEIN, SERUM 7.8 g/dL (6.4-8.2)
[2021-01-09 13:04] LABS: CANCER ANTIGEN 15-3 10.3
== END 2021-01-08 23:59 | disposition home or self-care (01) ==
LOC: LAB 11:41
PROVIDERS: ATTEND Nurse Practitioner Family
DX: Z00.00 Encounter for general adult medical examination without abnormal findings (principal)
CPT/HCPCS: 36415; 85025; 86300

== ENCOUNTER 2021-01-21 12:05 | Outpatient (CLI) | payer BC, OTHER ==
[2021-01-21 12:43] LABS: HEMATOCRIT 36.4 % (31.2-41.9); MEAN CORPUSCULAR HEMOGLOBIN 32.6 uug (24.7-32.8); PLATELET COUNT (AUTO) 287 K/uL (179-408)
[2021-01-21 12:49] LABS: CREATININE 0.8 mg/dL (0.6-1.3); POTASSIUM 4.6 mmol/L (3.5-5.1)
== END 2021-01-21 23:59 | disposition home or self-care (01) ==
LOC: LAB 12:05
PROVIDERS: ATTEND Internal Medicine
DX: R51.9 Headache, unspecified (principal)
CPT/HCPCS: 36415; 85025

== ENCOUNTER 2021-03-11 09:38 | Outpatient (CLI) | payer BC, OTHER ==
[2021-03-11 10:01] LABS: HEMATOCRIT 36.4 % (31.2-41.9); MEAN CORPUSCULAR HEMOGLOBIN 33.3 uug (24.7-32.8); MEAN CORPUSCULAR VOLUME 96.2 fL (75.5-95.3); PLATELET COUNT (AUTO) 289 K/uL (179-408)
[2021-03-11 10:09] LABS: BILIRUBIN,TOTAL 0.2 mg/dL (0.2-1.0); POTASSIUM 4.3 mmol/L (3.5-5.1); TOTAL PROTEIN, SERUM 7.4 g/dL (6.4-8.2)
[2021-03-12 14:34] LABS: CANCER ANTIGEN 15-3 11.8
== END 2021-03-11 23:59 | disposition home or self-care (01) ==
LOC: LAB 09:38
PROVIDERS: ATTEND Nurse Practitioner Family
DX: C50.919 Malignant neoplasm of unspecified site of unspecified female breast (principal)
CPT/HCPCS: 36415; 85025; 86300

== ENCOUNTER 2021-04-11 11:57 | Outpatient (CLI) | payer BC, OTHER ==
[2021-04-11 12:28] LABS: HEMATOCRIT 38.2 % (31.2-41.9); MEAN CORPUSCULAR HEMOGLOBIN 32.8 uug (24.7-32.8); MEAN CORPUSCULAR VOLUME 96.3 fL (75.5-95.3); PLATELET COUNT (AUTO) 284 K/uL (179-408)
[2021-04-11 12:31] LABS: BILIRUBIN,TOTAL 0.4 mg/dL (0.2-1.0); CREATININE 1.1 mg/dL (0.6-1.3); POTASSIUM 4.1 mmol/L (3.5-5.1); TOTAL PROTEIN, SERUM 7.5 g/dL (6.4-8.2)
== END 2021-04-11 23:59 | disposition home or self-care (01) ==
LOC: LAB 11:57
DX: C50.919 Malignant neoplasm of unspecified site of unspecified female breast (principal)
CPT/HCPCS: 36415; 85025; 86300

== ENCOUNTER 2021-05-06 09:20 | Emergency (ER) | payer BC, OTHER ==
[~2021-05-06] VITALS: Ht 157.5 cm; Wt 87.1 kg
[2021-05-06] MEDS ORDERED: ANAS1TAB50 PO (09:38)
--- NOTE | 2021-05-06 10:02 | NUR ---
Patient discharged to home in stable condition. Written and verbal after care instructions given. Patient verbalizes understanding of instructions. Stressed follow up or return to ER for worsening s/s.
== END 2021-05-06 10:03 | disposition home or self-care (01) ==
LOC: ER 09:20
DX: Z20.822 Contact with and (suspected) exposure to COVID-19 (principal)
CPT/HCPCS: A4663

== ENCOUNTER → 2021-07-11 | Outpatient (CLI) | payer BC, OTHER ==
[~2021-07-11] MED LIST changes: +ANAS1TAB50 PO
[2021-07-11 10:09] LABS: MEAN CORPUSCULAR HEMOGLOBIN 32.6 uug (24.7-32.8); MEAN CORPUSCULAR VOLUME 96.4 fL (75.5-95.3); PLATELET COUNT (AUTO) 288 K/uL (179-408)
[2021-07-11 10:40] LABS: BILIRUBIN,TOTAL 0.4 mg/dL (0.2-1.0); CREATININE 0.9 mg/dL (0.6-1.3); MAGNESIUM 2.3 mg/dL (1.8-2.4); POTASSIUM 4.2 mmol/L (3.5-5.1); TOTAL PROTEIN, SERUM 7.4 g/dL (6.4-8.2)
== END | disposition home or self-care (01) ==
LOC: LAB 09:37
PROVIDERS: ATTEND Nurse Practitioner Family
DX: C50.919 Malignant neoplasm of unspecified site of unspecified female breast (principal)
CPT/HCPCS: 83735; 85025; 85610; 86300

== ENCOUNTER 2021-09-08 10:40 | Outpatient (CLI) | payer BC, OTHER ==
[2021-09-08 11:18] LABS: HEMATOCRIT 37.4 % (31.2-41.9); MEAN CORPUSCULAR HEMOGLOBIN 32.9 uug (24.7-32.8); MEAN CORPUSCULAR VOLUME 94.3 fL (75.5-95.3); PLATELET COUNT (AUTO) 276 K/uL (179-408)
[2021-09-08 11:23] LABS: CREATININE 0.9 mg/dL (0.6-1.3); POTASSIUM 4.3 mmol/L (3.5-5.1)
== END 2021-09-08 23:59 | disposition home or self-care (01) ==
LOC: LAB 10:40
PROVIDERS: ATTEND Internal Medicine
DX: Z01.818 Encounter for other preprocedural examination (principal); C50.919 Malignant neoplasm of unspecified site of unspecified female breast
CPT/HCPCS: 36415; 71046; 85025; 85730

== ENCOUNTER 2021-09-12 07:24 | Outpatient (CLI) | payer BC, OTHER | END 2021-09-12 23:59 | disposition home or self-care (01) | LOC: LAB 07:24 | PROVIDERS: ATTEND Surgery Vascular Surgery | DX: Z01.812 Encounter for preprocedural laboratory examination (principal); Z20.822 Contact with and (suspected) exposure to COVID-19 ==

== ENCOUNTER 2021-09-15 12:40 | Day surgery (SDC) | payer BC, OTHER ==
[2021-09-15] MEDS ORDERED: hydrALAZINE HCL 20 MG/1 ML VIAL IM ONE (12:41)
[2021-09-15] MEDS ORDERED: LIDOCAINE HCL 1% 20 ML VIAL ONE (13:25)
[2021-09-15] MEDS ORDERED: CEFAZOLIN 1 G VIAL ONE (13:26)
[2021-09-15] MEDS ORDERED: LABETALOL HCL 100 MG/20 ML VIAL ONE ×2 (14:21→14:53)
[2021-09-15] MEDS ORDERED: ACETAMINOPHEN ES 500 MG TABLET ONE (14:43)
== END 2021-09-15 16:05 | disposition home or self-care (01) ==
LOC: DS 12:40
PROVIDERS: ATTEND Surgery Vascular Surgery
DX: Z45.2 Encounter for adjustment and management of vascular access device (principal); I10 Essential (primary) hypertension; F32.9 Major depressive disorder, single episode, unspecified; Z85.3 Personal history of malignant neoplasm of breast; Z79.899 Other long term (current) drug therapy; Z98.890 Other specified postprocedural states; Z87.891 Personal history of nicotine dependence; Z72.89 Other problems related to lifestyle; Z82.49 Family history of ischemic heart disease and other diseases of the circulatory system
CPT/HCPCS: 36590; J0360; J0690; J3490 ×3; J7120; A4649; A4663; A9150

== ENCOUNTER → 2021-10-09 | Outpatient (CLI) | payer BC, OTHER ==
[2021-10-09 12:43] LABS: HEMATOCRIT 37.3 % (31.2-41.9); MEAN CORPUSCULAR HEMOGLOBIN 32.7 uug (24.7-32.8); MEAN CORPUSCULAR VOLUME 95.1 fL (75.5-95.3); PLATELET COUNT (AUTO) 281 K/uL (179-408)
[2021-10-09 13:01] LABS: BILIRUBIN,TOTAL 0.4 mg/dL (0.2-1.0); POTASSIUM 4.5 mmol/L (3.5-5.1); TOTAL PROTEIN, SERUM 7.7 g/dL (6.4-8.2)
[2021-10-10 11:07] LABS: CANCER ANTIGEN 15-3 10.8 U/mL (0.0-25.0)
== END | disposition home or self-care (01) ==
LOC: LAB 12:18
PROVIDERS: ATTEND Family Medicine
DX: C50.911 Malignant neoplasm of unspecified site of right female breast (principal); Z15.01 Genetic susceptibility to malignant neoplasm of breast
CPT/HCPCS: 36415; 85025; 86300

== ENCOUNTER 2022-01-08 10:40 | Outpatient (CLI) | payer BC, OTHER ==
[2022-01-08 11:15] LABS: HEMATOCRIT 37.6 % (31.2-41.9); MEAN CORPUSCULAR HEMOGLOBIN 32.6 uug (24.7-32.8); PLATELET COUNT (AUTO) 291 K/uL (179-408)
[2022-01-08 11:29] LABS: BILIRUBIN,TOTAL 0.6 mg/dL (0.2-1.0); POTASSIUM 4.3 mmol/L (3.5-5.1); TOTAL PROTEIN, SERUM 7.6 g/dL (6.4-8.2)
== END 2022-01-08 23:59 | disposition home or self-care (01) ==
LOC: LAB 10:40
PROVIDERS: ATTEND Internal Medicine Hematology & Oncology
DX: C50.919 Malignant neoplasm of unspecified site of unspecified female breast (principal)
CPT/HCPCS: 36415; 85025; 86300

== ENCOUNTER 2022-04-22 11:31 | Outpatient (CLI) | payer BC, OTHER ==
[2022-04-22 12:23] LABS: HEMATOCRIT 38.2 % (31.2-41.9); MEAN CORPUSCULAR HEMOGLOBIN 32.3 uug (24.7-32.8); MEAN CORPUSCULAR VOLUME 96.2 fL (75.5-95.3); PLATELET COUNT (AUTO) 281 K/uL (179-408)
[2022-04-22 12:29] LABS: *BILIRUBIN,URIN NEGATIVE (NEGATIVE); *BLOOD, URINE NEGATIVE (NEGATIVE); *CLARITY,URINE CLEAR (CLEAR); *COLOR,URINE YELLOW (YELLOW); *KETONES,URINE NEGATIVE (NEGATIVE); *UROBILINOGEN,URINE 0.2 E.U./dl (NORMAL); LEUKOCYTE ESTERASE ,URINE NEGATIVE (NEGATIVE); NITRITE, URINE NEGATIVE (NEGATIVE); PH,URINE 5.5 (5.0-8.0); UGLUCOSE NEGATIVE (NEGATIVE)
[2022-04-22 12:54] LABS: THYROID STIMULATING HORMONE 4.833 mIU/mL (0.358-3.740)
[2022-04-22 13:00] LABS: BILIRUBIN,TOTAL 0.5 mg/dL (0.2-1.0); CREATININE 0.9 mg/dL (0.6-1.3); MAGNESIUM 2.1 mg/dL (1.8-2.4); TOTAL PROTEIN, SERUM 7.7 g/dL (6.4-8.2); URIC ACID 5.1 mg/dL (2.6-6.0)
[2022-04-23 08:06] LABS: CANCER ANTIGEN 15-3 9.8 U/mL (0.0-25.0)
== END 2022-04-22 23:59 | disposition home or self-care (01) ==
LOC: LAB 11:31
PROVIDERS: ATTEND Internal Medicine
DX: R31.9 Hematuria, unspecified (principal)
CPT/HCPCS: 36415; 82306; 83550; 83735; 84443; 84480; 84550; 85025; 86300

== ENCOUNTER 2022-08-11 10:50 | Outpatient (CLI) | payer BC, OTHER ==
[2022-08-11 11:25] LABS: HEMATOCRIT 38.2 % (31.2-41.9); MEAN CORPUSCULAR HEMOGLOBIN 32.1 uug (24.7-32.8); MEAN CORPUSCULAR VOLUME 96.8 fL (75.5-95.3); PLATELET COUNT (AUTO) 264 K/uL (179-408)
[2022-08-11 11:39] LABS: BILIRUBIN,TOTAL 0.4 mg/dL (0.2-1.0); CREATININE 0.8 mg/dL (0.6-1.3); MAGNESIUM 2.1 mg/dL (1.8-2.4); POTASSIUM 4.4 mmol/L (3.5-5.1); TOTAL PROTEIN, SERUM 7.7 g/dL (6.4-8.2)
[2022-08-12 13:06] LABS: CANCER ANTIGEN 15-3 10.8 U/mL (0.0-25.0)
== END 2022-08-11 23:59 | disposition home or self-care (01) ==
LOC: LAB 10:50
PROVIDERS: ATTEND Nurse Practitioner Family
DX: C50.919 Malignant neoplasm of unspecified site of unspecified female breast (principal); E55.9 Vitamin D deficiency, unspecified
CPT/HCPCS: 36415; 83735; 85025; 86300

== ENCOUNTER 2022-12-02 08:14 | Outpatient (CLI) | payer BC, OTHER ==
[2022-12-02 08:52] LABS: HEMATOCRIT 36.9 % (31.2-41.9); MEAN CORPUSCULAR HEMOGLOBIN 32.4 uug (24.7-32.8); MEAN CORPUSCULAR VOLUME 97.7 fL (75.5-95.3); PLATELET COUNT (AUTO) 246 K/uL (179-408)
[2022-12-02 09:23] LABS: BILIRUBIN,TOTAL 0.3 mg/dL (0.2-1.0); CREATININE 0.9 mg/dL (0.6-1.3); POTASSIUM 4.1 mmol/L (3.5-5.1); TOTAL PROTEIN, SERUM 7.4 g/dL (6.4-8.2)
[2022-12-03 10:07] LABS: CANCER ANTIGEN 15-3 9.3 U/mL (0.0-25.0)
[2022-12-06 15:06] LABS: *VITAMIN D 25-OH, D2 <1.0 ng/mL (.)
== END 2022-12-02 23:59 | disposition home or self-care (01) ==
LOC: LAB 08:14
PROVIDERS: ATTEND Nurse Practitioner Family
DX: C50.919 Malignant neoplasm of unspecified site of unspecified female breast (principal)
CPT/HCPCS: 36415; 85025; 86300